=== PATIENT | male | born 1940 | race Caucasian/White ===

== ENCOUNTER 2016-06-16 12:34 | Inpatient (IN) | payer MEDICARE, BC ==
[~2016-06-16] VITALS: Ht 175.3 cm; Wt 65.8 kg
[~2016-06-16 12:34] MED LIST: LEVE250T2 PO; LISI10TA5 PO; SIMV5TAB2 PO; TAMS-12 PO
--- NOTE | 2016-06-16 12:40 | NUR ---
PT CAME HERE FOR S/P TRIP/FALL, POSSIBLE HIP FRACTURE. 4MG MORPHINE GIVEN ON THE FIELD. NOTED HYPOTENSIVE. DENIES KO. DENIES HEAD, NECK AND BACK PAIN. PT AOOX3. SEEN AND EVALUATED BY UROLOGY PHYSICIAN ASSISTANT. IV ACCESS TRUCK TRAILER FINAL INSPECTOR. SAFETY AND COMFORT MEASURES PROVIDED. WILL MONITOR.
[2016-06-16] MEDS ORDERED: IV SET PRIMARY PUMP SET 1 EA INFUS.SET MC ONE (12:58)
[2016-06-16] MEDS ORDERED: IV NS 0.9% 1,000 ML ONE (12:58)
[2016-06-16 13:00] LABS: BASOPHILS # (AUTO) 0.1 /CMM (0.0-0.2); BASOPHILS % (AUTO) 0.9 % (0.0-2.0); EOSINOPHILS # (AUTO) 0.1 /CMM (0.0-0.7); EOSINOPHILS % (AUTO) 1.8 % (0.0-6.0); HEMATOCRIT 36 % (39-51); HEMOGLOBIN 12.4 g/dL (13.5-17.5); LYMPHOCYTES # (AUTO) 2.1 /CMM (0.8-4.8); MEAN CORPUSCULAR HEMOGLOBIN 31 PG (26.0-33.0); MEAN CORPUSCULAR HGB CONC 35 g/dl (31.0-36.0); MEAN CORPUSCULAR VOLUME 88 fL (80-96); MONOCYTES # (AUTO) 0.5 /CMM (0.1-1.30); MONOCYTES % (AUTO) 9.5 % (2.0-12.0); NEUTROPHILS # (AUTO) 2.9 /CMM (1.8-8.9); NEUTROPHILS % (AUTO) 51.8 % (43.0-81.0); PLATELET COUNT (AUTO) 263 /CMM (150-450); RDW COEFFICIENT OF VARIATION 12.7 (11.5-15.0); RED BLOOD CELL COUNT(AUTO) 4.06 MIL/uL (4.5-6.0); WHITE BLOOD COUNT (AUTO) 5.7 K/uL (4.3-11.0)
[2016-06-16] MEDS ORDERED: MORPHINE SULFATE INJ 2 MG/ML DISP.SYRIN IV ONE (13:00)
[2016-06-16] MEDS ORDERED: ONDANSETRON HCL/PF - ER 4 MG/2 ML VIAL IV ONE (13:00)
[2016-06-16 13:12] LABS: CALCIUM, SERUM 8.9 mg/dL (8.5-10.1); POTASSIUM 3.6 mmol/L (3.5-5.1)
[2016-06-16 13:19] LABS: PROTHROMBIN TIME 10.4 SECS (9.5-12.7)
--- NOTE | 2016-06-16 13:30 | NUR ---
PT TAKEN TO XRAY.
[2016-06-16] MEDS ORDERED: MORPHINE SULFATE INJ 4 MG/ML DISP.SYRIN ONE (13:58)
[2016-06-16] MEDS ORDERED: ONDANSETRON HCL/PF 4 MG/2 ML VIAL ONE (13:58)
--- NOTE | 2016-06-16 14:06 | NUR ---
PAGED DR KURTIS ALVAREZ
[2016-06-16] MEDS ORDERED: SIMV40TA5 PO (14:48)
[2016-06-16] MEDS ORDERED: HYDR25TA4 PO (14:48)
[2016-06-16] MEDS ORDERED: FINA5TAB11 PO (14:48)
[2016-06-16] MEDS ORDERED: CHOL200026 PO (14:48)
[2016-06-16] MEDS ORDERED: ALEN70TA45 PO (14:48)
[2016-06-16] MEDS ORDERED: CYAN10009 PO (14:48)
--- NOTE | 2016-06-16 14:52 | NUR ---
REPORT GIVEN TO ALIYAH HOWELL FOR MED SURG ROOM 202
[2016-06-16 15:00] VITALS: BP 116/81
[2016-06-16] MEDS ORDERED: LEVE250T4 PO (15:00)
[2016-06-16 15:18] VITALS: BP 116/81
[2016-06-16] MEDS ORDERED: ZOLPIDEM TARTRATE 5 MG TABLET PO PRN (15:30)
[2016-06-16] MEDS ORDERED: MAG HYDROX/AL HYDROX/SIMETH 30 ML UDC PO PRN (15:30)
[2016-06-16] MEDS ORDERED: MAGNESIUM HYDROXIDE 30 ML UDC PO PRN (15:30)
[2016-06-16] MEDS ORDERED: ONDANSETRON HCL/PF 4 MG/2 ML VIAL IVP PRN (15:30)
[2016-06-16] MEDS ORDERED: ACETAMINOPHEN 325 MG TABLET PO PRN (15:30)
[2016-06-16] MEDS ORDERED: Z GUARD REMEDY 2 OZ OINT TP PRN ×2 (15:30→17:30)
--- NOTE | 2016-06-16 15:30 | NUR ---
MS LYNDA OPENING RECEIVED PATIENT FROM ER FOR C/O MECHANICAL FALL WITH RIGHT FEMUR FX. PATIENT DENIES KO, LOSS OF CONSCIOUSNESS. A/0X4 STATES SEVERE PAIN WITH MOVEMENT AND WOULD LIKE PAIN MEDICATIONS. PHARMACY CALLED TO VERIFY MD ORDERD. PATIENT DENIES SOB, DIFFICULTY BREATHING AT THIS TIME. VS BEING TAKEN BY FUR PULLER. PATIENT AWARE DR MOSELEY/LUPILLO WILL CONSULT WITH HIM FOR ORTHO. AND DR MACDONALD WILL CLEAR PATIENT FOR POTENTIAL SURGERY. PATIENT UNDERSTANDING ON NON WEIGHT BEARING STATUS AT THIS TIME; BEDREST. CALL LIGHT IN REACH, BED LOWERED AND LOCKED, RAILS UPX3 FOR SAFETY WITH BED ALARM ON.
[2016-06-16] MEDS: HYDROMORPHONE INJ 2 MG/ML DISP.SYRIN IV PRN ×2 (15:40→23:14)
[2016-06-16 16:00] VITALS: BP_SYST 116; BP_SYST 118; BP_DIAS 77; BP_DIAS 81
[2016-06-16] MEDS ORDERED: ENOXAPARIN SODIUM 40 MG/0.4 ML DISP.SYRIN SQ SCH (16:08)
--- NOTE | 2016-06-16 18:54 | NUR ---
MS RN CLOSING PT STABLE. PAIN CONTROLLED WITH PHARM AND NON PHARM MEASURES. ALL DUE MEDS GIVEN AND ALL NEEDS MET. PATIENT STATES NO NEEDS AT THIS TIME. CALL LIGHT IN REACH, BED LOWERED AND LOCKED, RAILS UPX3 FOR SAFETY AND CARE WILL BE ENDORSED TO RN FOR NAY
--- NOTE | 2016-06-16 19:30 | NUR ---
MSRN FULLY AWAKE, POST OP PAIN TOLERABLE ON HIS RIGHT HIP. DRESSING DRY AND INTACT. NORTH TO GRAVITY DRAINING WELL. ENCOURAGED TO USE INCENTIVE SPIROMETRY. STATED MIGHT GO TO REHAB PLACE ON TUESDAY. NO NEEDS FOR NOW. V/S STABLE REMAINS AFEBRILE.
--- NOTE | 2016-06-16 19:30 | NUR ---
RN NOTES RECEIVED PT. AWAKE ON BED, A/OX4, DENIES PAIN AT THIS TIME, NO SOB, CALL LIGHT WITHIN REACH, SIDERAILS UPX2 , CONTINUE TO MONITOR
[2016-06-16 20:00] VITALS: BP 128/70
--- NOTE | 2016-06-16 20:34 | NUR ---
RN NOTES COMPLAINED OF HAVING A HARD TIME URINATING,AND PT IS GOING TO HAVE SURGERY TOMORROW, SPOKE TO CORIE MENDEZ AND HE WILL PUT AN ORDER OF NORTH CATHETER.
--- NOTE | 2016-06-16 21:00 | NUR ---
RN NOTES FOLET CATHETER INSERTED EMPTIED 1200
[2016-06-16] MEDS: LEVETIRACETAM (250 MG) 250 MG TABLET PO SCH (21:27)
--- NOTE | 2016-06-16 23:28 | NUR ---
RN NOTES COMPLAINED OF RIGHT HIP PAIN-DILAUDID 1MG IV GIVEN ORDERED,V/S STABLE
[2016-06-17] VITALS (8 sets, daily range): BP systolic 114–134; BP diastolic 53–86
[2016-06-17] MEDS: HYDROMORPHONE INJ 2 MG/ML DISP.SYRIN IV PRN ×4 (05:30→22:55)
--- NOTE | 2016-06-17 05:36 | NUR ---
RN NOTES COMPLAINED OF RIGHT HIP PAIN- DILAUDID 1MG IV GIVEN ORDERED, V/S STABLE
--- NOTE | 2016-06-17 06:15 | NUR ---
RN NOTES AWAKE DENIES PAIN AT THIS TIME, MORNING CARE RENDERED, CALL LIGHT WITHIN REACH, SIDERAILS UPX2, PT. NEEDS ATTENDED
[2016-06-17 06:45] LABS: BASOPHILS % (AUTO) 0.3 % (0.0-2.0); EOSINOPHILS # (AUTO) 0.1 /CMM (0.0-0.7); EOSINOPHILS % (AUTO) 1.7 % (0.0-6.0); HEMATOCRIT 36 % (39-51); HEMOGLOBIN 12.4 g/dL (13.5-17.5); LYMPHOCYTES # (AUTO) 0.8 /CMM (0.8-4.8); LYMPHOCYTES % (AUTO) 9.8 % (20.0-44.0); MEAN CORPUSCULAR HEMOGLOBIN 31 PG (26.0-33.0); MEAN CORPUSCULAR HGB CONC 35 g/dl (31.0-36.0); MEAN CORPUSCULAR VOLUME 89 fL (80-96); MONOCYTES # (AUTO) 0.7 /CMM (0.1-1.30); MONOCYTES % (AUTO) 8.3 % (2.0-12.0); NEUTROPHILS # (AUTO) 6.3 /CMM (1.8-8.9); NEUTROPHILS % (AUTO) 79.9 % (43.0-81.0); PLATELET COUNT (AUTO) 219 /CMM (150-450); RDW COEFFICIENT OF VARIATION 13.3 (11.5-15.0); RED BLOOD CELL COUNT(AUTO) 4.04 MIL/uL (4.5-6.0); WHITE BLOOD COUNT (AUTO) 7.9 K/uL (4.3-11.0)
[2016-06-17 06:57] LABS: CALCIUM, SERUM 8.3 mg/dL (8.5-10.1); CREATININE 0.9 mg/dL (0.6-1.3); MAGNESIUM 1.8 mg/dL (1.8-2.4); PHOSPHORUS 2.2 mg/dL (2.5-4.9); POTASSIUM 3.9 mmol/L (3.5-5.1)
[2016-06-17 07:04] LABS: THYROID STIMULATING HORMONE 1.113 uIU/mL (0.358-3.74)
[2016-06-17] MEDS: PANTOPRAZOLE 40 MG TABLET.DR PO SCH (07:30)
--- NOTE | 2016-06-17 07:30 | NUR ---
MS/RN OPENING NOTE PT. A&OX4, IN BED, NOT IN DISTRESS AND IN STABLE CONDITION, NO SOB. PT. HAS NORTH. BED IN LOW POSITION, 2 BED RAILS UP, CALL LIGHT WITHIN REACH. PT. IS ON NPO BEFORE RIGHT HIP SURGERY. LEFT AC IV ACCESS INTACT.
[2016-06-17] MEDS: HYDROCHLOROTHIAZIDE 25 MG TABLET PO SCH (08:54)
[2016-06-17] MEDS: FINASTERIDE (5 MG) 5 MG TABLET PO SCH (08:54)
[2016-06-17] MEDS: LISINOPRIL (10MG) 10 MG TABLET PO SCH (08:54)
[2016-06-17] MEDS: LEVETIRACETAM (250 MG) 250 MG TABLET PO SCH ×2 (08:55→20:44)
[2016-06-17] MEDS ORDERED: SIMVASTATIN 40 MG TABLET PO SCH (09:00)
--- NOTE | 2016-06-17 10:00 | NUR ---
MS/RN MEDICATIONS/NASAL CANNULA PT. C/O PAIN 5/10 RIGHT HIP, DILAUDID GIVEN, AND APPLIED NASAL CANNULA 2L/MIN DUE TO SPO2 86%.
--- NOTE | 2016-06-17 11:00 | NUR ---
MS/RN REASSESSMENT PT. REPORTED PAIN LEVEL 3/10 AND PAIN RELIEF IN RIGHT HIP. SPO2 IS NOW AT 91%.
[2016-06-17] MEDS ORDERED: SEVOFLURANE 250 ML BOTTLE IH ONE (11:32)
--- NOTE | 2016-06-17 15:23 | NUR ---
MS/RN PT. LEFT ROOM PT. LEFT ROOM ALERT&OX4, IN STABLE CONDITION TO GO FOR SURGERY OF THE RIGHT HIP FRACTURE.
[2016-06-17] MEDS ORDERED: BUPIVACAINE 0.5 % PF 150 MG/30 ML VIAL ONE (15:47)
[2016-06-17] MEDS ORDERED: BACITRACIN 50000 UNITS/VIAL ONE (15:47)
[2016-06-17] MEDS ORDERED: BUPIVACAINE MPF 0.5% W/EPI INJ 30 ML VIAL ONE (15:47)
[2016-06-17] MEDS ORDERED: FENTANYL PF 250MCG/5ML AMPUL ONE (15:59)
[2016-06-17] MEDS ORDERED: SUCCINYLCHOLINE CHLORIDE 20 MG/ML VIAL ONE (15:59)
--- NOTE | 2016-06-17 18:20 | NUR ---
MS/RN RETURNED TO SAME ROOM POST OP PT. RETURNED TO ROOM FROM SURGERY. PT. VITAL SIGNS BP 128/64, HR 62, SPO2 92%. PT. IS NOT IN DISTRESS. PT. IS BREATHING UNLABORED AND EVENLY. PT. WAS ORDERED POST -OP TO RESUME PREVIOUS ORDERS. TAKE VITALS EVERY 15 MINUTES FOR AN HOUR. PT. WAS ORDERED BY ANESTHESIOLOGIST TO BE ON CONTINUOUS SPO2 FOR 24 HOURS. NEW MEDICATIONS WERE ORDERED.
[2016-06-17] MEDS ORDERED: IV NS 0.9% 1,000 ML BAG IV PRN (19:00)
--- NOTE | 2016-06-17 19:30 | NUR ---
MS NURSE'S OPENING NOTE RECEIVED REPORT FROM NIGHT NURSE. PATIENT IS RESTING IN BED, BED IN LOW AND LOCKED POSITION, SIDE RAILS UP X2, CALL LIGHT WITHIN REACH AND SO SIGNS OF DISTRESS.
--- NOTE | 2016-06-17 19:38 | NUR ---
MS/RN CLOSING NOTE PT. IS IN BED A&OX4, IN STABLE CONDITION WITH VITAL SIGNS WNL AFTER RIGHT HIP SURGERY. WEARING NASAL CANNULA WITH OXYGEN FLOWING 4.5L/MIN. ON CONTINUOUS SPO2 FOR 24 HOURS PER MD ORDER. PT. WAS GIVEN DILAUDID FOR PAIN, AND ZOFRAN. NO DRAINAGE FROM SURGICAL SITE. HAS NEW IV ACCESS SITE ON LEFT WRIST AND PATENT. ORDER GIVEN BY CINDY LOEV TO START IV FLUIDS NS 100ML/HR UNTIL TOLERATING ALL ORAL FLUIDS. LAST PAIN MEDICATION WAS GIVEN AT 1900 ALONG WITH ZOFRAN. WILL ENDORSE TO [facility].
[2016-06-17] MEDS ORDERED: Sodium Phosphate 15 MMOL in IV D5W 250 ML IV ONE (20:00)
[2016-06-17] MEDS ORDERED: IV SET PRIMARY PUMP SET 1 EA INFUS.SET MC ONE (20:47)
[2016-06-17] MEDS ORDERED: SECONDARY IV SET 1 EA INFUS.SET MC ONE ×2 (20:47→23:39)
[2016-06-17] MEDS ORDERED: IV NS 0.9% 1,000 ML ONE (20:47)
[2016-06-17] MEDS: IV NS 0.9% 1,000 ML IV PRN (20:53)
--- NOTE | 2016-06-17 22:59 | NUR ---
RN NOTES COMPLAINED OF RIGHT HIP PAIN- DILAUDID 1MG IV GIVEN ORDERED, V/S STABLE
[2016-06-18] MEDS ORDERED: SECONDARY IV SET 1 EA INFUS.SET MC ONE ×3 (00:02→12:46)
[2016-06-18] MEDS: CEFAZOLIN 2 GM in IV D5W 50 ML IV SCH ×3 (00:08→17:17)
[2016-06-18] MEDS: HYDROCODONE/APAP 5/325MG 1 EACH TABLET PO PRN ×2 (05:22→16:23)
--- NOTE | 2016-06-18 05:31 | NUR ---
MS NURSE'S NOTE PAIN MED PT COMPLAINED OF 4/10 PAIN AT RT HIP. ADMINISTERED NORCO 5/325 ORDERED. VS STABLE.
--- NOTE | 2016-06-18 06:50 | NUR ---
MS CLOSING NOTES PT IS RESTING IN BED, SIDE RAILS UP X2, BED IN LOCKED POSITION, CALL LIGHT WITHIN REACH. PT SHOWS NO SIGNS OF DISTRESS.
[2016-06-18 06:53] LABS: BASOPHILS % (AUTO) 0.1 % (0.0-2.0); HEMATOCRIT 32 % (39-51); HEMOGLOBIN 10.8 g/dL (13.5-17.5); LYMPHOCYTES # (AUTO) 0.8 /CMM (0.8-4.8); LYMPHOCYTES % (AUTO) 8.2 % (20.0-44.0); MEAN CORPUSCULAR HEMOGLOBIN 30 PG (26.0-33.0); MEAN CORPUSCULAR HGB CONC 34 g/dl (31.0-36.0); MEAN CORPUSCULAR VOLUME 89 fL (80-96); MONOCYTES % (AUTO) 9.9 % (2.0-12.0); NEUTROPHILS # (AUTO) 8.2 /CMM (1.8-8.9); NEUTROPHILS % (AUTO) 81.8 % (43.0-81.0); PLATELET COUNT (AUTO) 189 /CMM (150-450); RDW COEFFICIENT OF VARIATION 13.3 (11.5-15.0); RED BLOOD CELL COUNT(AUTO) 3.54 MIL/uL (4.5-6.0)
[2016-06-18 07:25] LABS: CALCIUM, SERUM 7.6 mg/dL (8.5-10.1); CREATININE 0.7 mg/dL (0.6-1.3); MAGNESIUM 1.7 mg/dL (1.8-2.4); PHOSPHORUS 2.7 mg/dL (2.5-4.9); POTASSIUM 3.6 mmol/L (3.5-5.1)
[2016-06-18 08:00] VITALS: BP 114/73
[2016-06-18] MEDS: LISINOPRIL (10MG) 10 MG TABLET PO SCH (08:09)
[2016-06-18] MEDS: PANTOPRAZOLE 40 MG TABLET.DR PO SCH (08:10)
[2016-06-18] MEDS: HYDROCHLOROTHIAZIDE 25 MG TABLET PO SCH (08:10)
[2016-06-18] MEDS: FINASTERIDE (5 MG) 5 MG TABLET PO SCH (08:10)
[2016-06-18] MEDS: LEVETIRACETAM (250 MG) 250 MG TABLET PO SCH ×2 (08:10→21:27)
--- NOTE | 2016-06-18 08:46 | NUR ---
MS/RN SURGEON CONSULT POST OP PT. WAS SEEN BY THE SURGEON TIERRA JAUREGUI. DISCUSSED WITH DOCTOR PT. DIET PT. WAS ORDERED HE CAN RESUME REGULAR DIET. PT. WAS ORDERED A CARDIAC DIET BREAKFAST.
[2016-06-18] MEDS: Magnesium 1GM/D5W 100ML PREMIX 100 ML IV SCH ×2 (12:54→13:45)
[2016-06-18] MEDS: IV NS 0.9% 1,000 ML IV PRN (12:56)
[2016-06-18] MEDS: HYDROCODONE/APAP 10/325MG 1 EA TABLET PO PRN (13:34)
[2016-06-18 16:00] VITALS: BP 125/52
[2016-06-18] MEDS: HYDROMORPHONE INJ 2 MG/ML DISP.SYRIN IV PRN ×3 (16:13→18:56)
--- NOTE | 2016-06-18 16:25 | NUR ---
DILAUDID COULD NOT BE ADMINISTERED VIA IV DUE TO PT. IV ACCESS SITE LEFT WRIST WAS INFILTRATED. PT. WAS INSTRUCTED TO KEEP LEFT ARM ELEVATED, PILLOWS WERE PROVIDED FOR SUPPORT.
--- NOTE | 2016-06-18 19:30 | NUR ---
MS NURSE OPENING NOTES RECEIVED REPORT FROM NIGHT NURSE. PT RESTING IN BED, SIDE RAILS UP X2, CALL LIGHT WITHIN REACH, AND NO SIGNS OF DISTRESS.
--- NOTE | 2016-06-18 19:30 | NUR ---
MS NURSES OPENING NOTES RECEIVED REPORT FROM NIGHT NURSE. PT WAS IN BED, HOB AT 45 DEGREES, CALL LIGHT WITHIN REACH, NO SIGNS OF DISTRESS.
--- NOTE | 2016-06-18 19:30 | NUR ---
MSRN FULLY AWAKE, ALL NEEDS MADE. ABLE TO TOLERATE RIGHT HIP POST OP PAIN. DRESSING DRY AND INTACT. WANTED TO GO HOME. STATED WILL GO BY TUESDAY TO REHAB FOR SHORT PERIODS . ENCOURAGE TO USE INCENTIVE SPIROMETRY.
--- NOTE | 2016-06-18 19:34 | NUR ---
MS/RN CLOSING NOTE PT. IS IN BED, IN STABLE CONDITION. NOT IN DISTRESS, AND NO SOB, BREATHING AT ROOM AIR. A&OX4, PAIN LEVEL AT A 3/10. PT. HAS A NEW IV ACCESS ON HIS RIGHT FOREARM WITH FLUIDS INFUSING AT 5ML/HR. BED IS IN LOW POSITION, CALL LIGHT WITHIN REACH. WILL ENDORSE REPORT TO NIGHT NURSE.
[2016-06-18 20:00] VITALS: BP 100/46
[2016-06-18] MEDS: SIMVASTATIN 40 MG TABLET PO SCH (21:27)
[2016-06-18] MEDS: ENOXAPARIN SODIUM 40 MG/0.4 ML DISP.SYRIN SQ SCH (21:33)
--- NOTE | 2016-06-18 22:25 | NUR ---
MSRN RESTING QUIETLY, NORTH TO GRAVITY DRAINING WELL. NO NEEDS FOR NOW, V/S STABLE
[2016-06-18 22:31] VITALS: BP 100/46
--- NOTE | 2016-06-19 05:54 | NUR ---
MSRN AWAKE, STATED WANT TO GET OOB. BUT CHANGED HIS MIND. DENIES ANT DISCOMFORTS FOR NOW.
--- NOTE | 2016-06-19 07:10 | NUR ---
RN INITIAL NOTES RECEIVED PT IN BED, A/O X 4, ABLE TO MAKE NEEDS KNOWN, PT IS ON RA, SATING WELL, NO S/S OF RESP. DISTRESS OR SOB NOTED AT THIS TIME,PT HAS RIGHT HIP SURGICAL DRESSING INTACT, DRY AND CLEAN, PT HAS R WRIST # 22G, C/D/I/PATENT, FLUSHING WELL, RUNNING NS @ 100ML/HR, NO S/S OF INFECTION/ INFILTRATION NOTED AT THIS TIME, PT HAS F/C INTACT/PATENT, DRAINING YELLOW URINE TO GRAVITY, ALL SAFETY MEASURES IN PLACE AT ALL TIMES, CALL LIGHT WITHIN EASY REACH, WILL MONITOR PT CLOSELY
[2016-06-19 07:34] LABS: CALCIUM, SERUM 7.5 mg/dL (8.5-10.1); CREATININE 0.7 mg/dL (0.6-1.3); MAGNESIUM 1.9 mg/dL (1.8-2.4); POTASSIUM 3.5 mmol/L (3.5-5.1)
--- NOTE | 2016-06-19 07:47 | NUR ---
MS NURSE CLOSING NOTES GAVE REPORT TO MORNING NURSE. PT RESTING IN BED, SIDE RAILS UP X2, CALL LIGHT WITHIN REACH, AND NO SIGNS OF DISTRESS.
[2016-06-19 08:00] VITALS: BP 127/61
[2016-06-19] MEDS: IV NS 0.9% 1,000 ML IV PRN ×2 (08:08→17:42)
[2016-06-19] MEDS: FINASTERIDE (5 MG) 5 MG TABLET PO SCH (08:09)
[2016-06-19] MEDS: LISINOPRIL (10MG) 10 MG TABLET PO SCH (08:09)
[2016-06-19] MEDS: LEVETIRACETAM (250 MG) 250 MG TABLET PO SCH ×2 (08:09→20:50)
[2016-06-19] MEDS: PANTOPRAZOLE 40 MG TABLET.DR PO SCH (08:09)
[2016-06-19] MEDS: HYDROCHLOROTHIAZIDE 25 MG TABLET PO SCH (08:10)
[2016-06-19] MEDS: HYDROCODONE/APAP 10/325MG 1 EA TABLET PO PRN (13:44)
[2016-06-19] MEDS: HYDROMORPHONE INJ 2 MG/ML DISP.SYRIN IV PRN ×2 (13:45→20:59)
--- NOTE | 2016-06-19 13:52 | NUR ---
RN NOTES NON ADMINISTERED PINK MEDICATIONS FOR PT SAFETY
[2016-06-19 16:00] VITALS: BP 119/56
--- NOTE | 2016-06-19 17:40 | NUR ---
RN NOTES F/C REMOVED, PT TOLERATE WELL, PT ABLE TO URINATE
--- NOTE | 2016-06-19 18:44 | NUR ---
RN CLOSING NOTES PT REMAINED STABLE DURING SHIFT, ALL ORDERS CARRIED OUT, IV INTACT/PATENT, RUNNING FLUIDS ORDERED, PT KEPT CLEAN AND DRY, ALL SAFETY MEASURES IN PLACE AT ALL TIMES, REPORT WILL BE GIVEN TO PM RN FOR NAY
[2016-06-19 19:00] VITALS: BP_SYST 103; BP_SYST 123; BP_DIAS 53; BP_DIAS 73
[2016-06-19 20:00] VITALS: BP 123/53
--- NOTE | 2016-06-19 20:00 | NUR ---
RECEIVED PATIENT IN BED, ALERT AND ORIENTED X4, CALM, NO SOB, NO RESPIRATORY DISTRESS, S/P RIGHT HIP ORIF 06/17/16, LUNG SOUNDS ARE CLEAR, ABDOMEN SOFT AND NON-TENDER, NO N/V, PAIN IS TOLERABLE AT THIS TIME, WILL ASK FOR PAIN MEDICATION WHEN NEEDED, RIGHT WRIST PERIPHERAL LINE IS PATENT AND INFUSING WELL, RIGHT HIP DRESSING IS CLEAN, PATENT, NO BLEEDING, ABLE TO USE TRAPEZE, S/P NORTH CATHETER REMOVAL, ABLE TO VOID IN URINAL OF CLEAR AND YELLOW URINE. KEPT SAFE AND COMFORTABLE, CALL LIGHT WITHIN REACH.
[2016-06-19] MEDS: ENOXAPARIN SODIUM 40 MG/0.4 ML DISP.SYRIN SQ SCH (20:53)
[2016-06-19] MEDS: SIMVASTATIN 40 MG TABLET PO SCH (21:07)
[2016-06-19 22:00] VITALS: BP 123/53
[2016-06-20] MEDS: IV NS 0.9% 1,000 ML IV PRN ×2 (03:33→13:47)
--- NOTE | 2016-06-20 06:30 | NUR ---
PATIENT IN BED, ALERT AND AWAKE, NO SOB, NO DISTRESS, PAIN TO RIGHT HIP IS 4/10, WILL ASK FOR PAIN MEDICATION WHEN NEEDED, NO DIFFICULTY VOIDING VIA URINAL, ALL DUE MEDICATIONS GIVEN, KEPT SAFE AND COMFORTABLE, CALL LIGHT WITHIN REACH.
--- NOTE | 2016-06-20 07:10 | NUR ---
MS RN NOTES RECEIVED PATIENT IN BED, AWAKE, A/O X3. BREATHING EVEN AND NON LABORED, NO SOB NOTED. IV IN LEFT WRIST G22 PATENT AND INTACT, FLUSHES WELL. RIGHT HIP INCISION WITH REJI INTACT, DRESSING IN PLACE. NO C/O PAIN AT THIS TIME. CALL LIGHT WITHIN REACH. WILL CONT TO MONITOR.
[2016-06-20 07:12] LABS: CALCIUM, SERUM 7.4 mg/dL (8.5-10.1); CREATININE 0.6 mg/dL (0.6-1.3); POTASSIUM 3.4 mmol/L (3.5-5.1)
[2016-06-20 08:00] VITALS: BP 131/66
[2016-06-20] MEDS: FINASTERIDE (5 MG) 5 MG TABLET PO SCH (08:47)
[2016-06-20] MEDS: LEVETIRACETAM (250 MG) 250 MG TABLET PO SCH (08:47)
[2016-06-20] MEDS: HYDROCHLOROTHIAZIDE 25 MG TABLET PO SCH (08:48)
[2016-06-20] MEDS: LISINOPRIL (10MG) 10 MG TABLET PO SCH (08:48)
[2016-06-20] MEDS: PANTOPRAZOLE 40 MG TABLET.DR PO SCH (08:48)
[2016-06-20] MEDS: HYDROCODONE/APAP 5/325MG 1 EACH TABLET PO PRN (08:53)
[2016-06-20] MEDS ORDERED: ENOX40DI SQ (11:24)
[2016-06-20] MEDS ORDERED: HYDR-3326 PO (11:24)
[2016-06-20] MEDS ORDERED: HYDR-3658 PO (11:24)
[2016-06-20] MEDS ORDERED: SENN-22 PO (11:24)
[2016-06-20] MEDS ORDERED: POTASSIUM CHLORIDE 20 MEQ TAB.PRT.SR PO SCH (11:30)
--- NOTE | 2016-06-20 11:31 | NUR ---
PATIENT TO BE DISCHARGED TO REHAB FACILITY, CM INFORMED.
[2016-06-20 16:00] VITALS: BP_SYST 141
[2016-06-20] MEDS: HYDROCODONE/APAP 10/325MG 1 EA TABLET PO PRN (19:05)
--- NOTE | 2016-06-20 19:15 | NUR ---
MS RN CLOSING NOTES PATIENT IN BED, A/O X3. NOT IN DISTRESS. PATIENT HAS BEEN CLEARED FOR DISCHARGE TO [facility] TODAY. DISCHARGE INSTRUCTION GIVEN TO THE PATIENT, VERBALIZED UNDERSTANDING. CALL LIGHT WITHIN REACH. CALLED [facility] SPOKE TO HOLLEY-LYNDA FOR REPORT. ENDORSED TO PACKING ROOM WORKER RN FOR CONTINUITY OF CARE.
--- NOTE | 2016-06-20 19:30 | NUR ---
MS RN INITIAL NOTE RECEIVED PT AWAKE AND ALERT, RESPIRATIONS EVEN AND UNLABORED, NORCO 10/325MG GIVEN FOR PAIN WILL BE REASSESSING FOR EFFECTIVENESS, PT IS SCHEDULED TO BE TRANSFERRED TO [facility], CURRENTLY AWAITING FOR AMBULANCE TO ARRIVE, PT IS CLEAN/DRY AND COMFORTABLE, SAFETY MEASURES WILL BE MAINTAINED AT ALL TIMES, WILL MONITOR CLOSELY.
[2016-06-20 20:00] VITALS: BP 139/65
--- NOTE | 2016-06-20 20:05 | NUR ---
PT HAS BEEN PICKED UP BY EMT TO TRANSPORT PT TO [facility], PT IS STABLE AT TIME OF DISCHARGE, IV ACCESS HAS BEEN D/C'D, NORCO 10/325MG GIVEN AN HOUR BEFORE D/C, NO COMPLAINT OF PAIN OR RESPIRATORY DISTRESS NOTED AT THIS TIME, REPORT GIVEN TO EMT, MD AND CHARGE NURSE AWARE OF DISCHARGE.
[2016-06-21] MEDS ORDERED: ALENDRONATE 70 MG TABLET PO SCH (07:30)
== END 2016-06-20 20:15 | DRG 481 ==
LOC: ER 12:37 → MEDSG2 14:43
PROC: 0QS604Z Reposition Right Upper Femur with Internal Fixation Device, Open Approach (ICD-10-PCS; principal; 2016-06-17 16:00)
DX: S72.091A Other fracture of head and neck of right femur, initial encounter for closed fracture (principal); G40.209 Localization-related (focal) (partial) symptomatic epilepsy and epileptic syndromes with complex partial seizures, not intractable, without status epilepticus; E87.1 Hypo-osmolality and hyponatremia; W10.9XXA Fall (on) (from) unspecified stairs and steps, initial encounter; N40.0 Benign prostatic hyperplasia without lower urinary tract symptoms; I10 Essential (primary) hypertension; G31.84 Mild cognitive impairment of uncertain or unknown etiology; F17.210 Nicotine dependence, cigarettes, uncomplicated; E78.5 Hyperlipidemia, unspecified; I35.0 Nonrheumatic aortic (valve) stenosis; Z79.899 Other long term (current) drug therapy; Z80.41 Family history of malignant neoplasm of ovary; Z87.442 Personal history of urinary calculi; X58.XXXA Exposure to other specified factors, initial encounter; Y92.009 Unspecified place in unspecified non-institutional (private) residence as the place of occurrence of the external cause; Y99.9 Unspecified external cause status; D64.9 Anemia, unspecified; M62.84 Sarcopenia; Z79.83 Long term (current) use of bisphosphonates
CPT/HCPCS: 36415; 71010-TC; 73510-TC; 73550-TC; 80048-TC; 80061-TC; 82306; 83735-TC; 84100-TC; 84443-TC; 85025-TC; 85730-TC; 86850-TC; 87081-TC; 88305-TC; 88311-TC; 93307-TC; 97001-TC; 97110-TC; 97112-TC; 97530-TC; A4606; A6209; A6402; A9563; J0330; J0690; J1100; J1170; J1650; J2270; J2405; J2704; J2710; J3010; J3475; J3490; J7030; J7060; Z7610

== ENCOUNTER 2020-03-06 13:15 | Outpatient (CLI) | payer MEDICARE, BC ==
[~2020-03-06 13:15] MED LIST changes: +ALEN70TA69 PO; +CHOL200026 PO; +CYAN-51 PO; +ENOX40DI SQ; +FINA5TAB11 PO; +HYDR-3974 PO; +HYDR-3980 PO; +HYDR25TA4 PO; -LEVE250T2 PO; +LEVE250T4 PO; +SENN1TAB6 PO; +SIMV-49 PO; -SIMV5TAB2 PO; -TAMS-12 PO
[2020-03-06] MEDS ORDERED: LIDOCAINE 2% JEL 5 ML TUBE ONE (13:23)
[2020-03-06 14:35] LABS: BASOPHILS # (AUTO) 0.1 /CMM (0.0-0.2); BASOPHILS % (AUTO) 1.2 % (0.0-2.0); EOSINOPHILS % (AUTO) 1.5 % (0.0-6.0); HEMATOCRIT 38 % (39-51); HEMOGLOBIN 12.9 g/dL (13.5-17.5); LYMPHOCYTES # (AUTO) 1.8 /CMM (0.8-4.8); LYMPHOCYTES % (AUTO) 30.3 % (20.0-44.0); MEAN CORPUSCULAR HGB CONC 34 g/dl (31.0-36.0); MEAN CORPUSCULAR VOLUME 89 fL (80-96); MONOCYTES # (AUTO) 0.6 /CMM (0.1-1.30); MONOCYTES % (AUTO) 10.3 % (2.0-12.0); NEUTROPHILS # (AUTO) 3.3 /CMM (1.8-8.9); NEUTROPHILS % (AUTO) 56.7 % (43.0-81.0); PLATELET COUNT (AUTO) 250 /CMM (150-450); RED BLOOD CELL COUNT(AUTO) 4.27 MIL/uL (4.5-6.0); WHITE BLOOD COUNT (AUTO) 5.8 K/uL (4.3-11.0)
[2020-03-06 14:46] LABS: CALCIUM, SERUM 9.2 mg/dL (8.5-10.1); CREATININE 0.8 mg/dL (0.6-1.3); POTASSIUM 3.7 mmol/L (3.5-5.1)
== END 2020-03-06 23:59 | disposition home or self-care (01) ==
LOC: WOU 13:15
PROVIDERS: ATTEND Surgery
DX: C44.719 Basal cell carcinoma of skin of left lower limb, including hip (principal); E78.5 Hyperlipidemia, unspecified; I10 Essential (primary) hypertension; N40.0 Benign prostatic hyperplasia without lower urinary tract symptoms
CPT/HCPCS: 36415; 71250; 74176; 80048; 85025; 85730; 93005; G0463

== ENCOUNTER 2020-03-17 09:45 | Outpatient (CLI) | payer MEDICARE, BC | END 2020-03-17 23:59 | disposition home or self-care (01) | LOC: LAB 09:45 | PROVIDERS: ATTEND Surgery | DX: Z01.812 Encounter for preprocedural laboratory examination (principal); Z20.822 Contact with and (suspected) exposure to COVID-19 | CPT/HCPCS: C9803; U0003 ==

== ENCOUNTER 2020-03-27 13:20 | Outpatient (CLI) | payer MEDICARE, BC ==
[~2020-03-27 13:20] MED LIST changes: -ALEN70TA69 PO; +ALEN70TA80 PO; +LISI10TA29 PO; -LISI10TA5 PO
== END 2020-03-27 23:59 | disposition home or self-care (01) ==
LOC: WOU 13:20
PROVIDERS: ATTEND Surgery
DX: Z48.817 Encounter for surgical aftercare following surgery on the skin and subcutaneous tissue (principal); C44.719 Basal cell carcinoma of skin of left lower limb, including hip; R26.2 Difficulty in walking, not elsewhere classified; I10 Essential (primary) hypertension; E78.5 Hyperlipidemia, unspecified; N40.0 Benign prostatic hyperplasia without lower urinary tract symptoms; F17.210 Nicotine dependence, cigarettes, uncomplicated
CPT/HCPCS: G0463

== ENCOUNTER 2020-04-03 13:50 | Outpatient (CLI) | payer MEDICARE, BC | END 2020-04-03 23:59 | disposition home health service (06) | LOC: WOU 13:50 | PROVIDERS: ATTEND Surgery | DX: T81.31XA Disruption of external operation (surgical) wound, not elsewhere classified, initial encounter (principal); T86.821 Skin graft (allograft) (autograft) failure; I10 Essential (primary) hypertension; E78.5 Hyperlipidemia, unspecified; N40.0 Benign prostatic hyperplasia without lower urinary tract symptoms | CPT/HCPCS: 11043 ==

== ENCOUNTER 2020-04-04 13:35 | Outpatient (CLI) | payer MEDICARE, BC | END 2020-04-04 23:59 | disposition home or self-care (01) | LOC: WOU 13:35 | PROVIDERS: ATTEND Specialist | DX: T86.828 Other complications of skin graft (allograft) (autograft) (principal); I10 Essential (primary) hypertension; E78.5 Hyperlipidemia, unspecified; Z87.891 Personal history of nicotine dependence; Z85.828 Personal history of other malignant neoplasm of skin | CPT/HCPCS: G0463 ==

== ENCOUNTER 2020-04-09 11:05 | Outpatient (CLI) | payer MEDICARE, BC | END 2020-04-09 23:59 | disposition home health service (06) | LOC: WOU 11:05 | PROVIDERS: ATTEND Specialist | DX: T86.828 Other complications of skin graft (allograft) (autograft) (principal); R22.9 Localized swelling, mass and lump, unspecified; I10 Essential (primary) hypertension; E78.5 Hyperlipidemia, unspecified; Z85.828 Personal history of other malignant neoplasm of skin | CPT/HCPCS: G0463 ==

== ENCOUNTER 2020-04-17 13:45 | Outpatient (CLI) | payer MEDICARE, BC ==
[~2020-04-17 13:45] MED LIST changes: +LIDOCAINE SOLN 4% 50 ML BOTTLE ONE
== END 2020-04-17 23:59 | disposition home health service (06) ==
LOC: WOU 13:45
PROVIDERS: ATTEND Surgery
DX: T86.828 Other complications of skin graft (allograft) (autograft) (principal); T81.31XA Disruption of external operation (surgical) wound, not elsewhere classified, initial encounter; I10 Essential (primary) hypertension; E78.5 Hyperlipidemia, unspecified; N40.0 Benign prostatic hyperplasia without lower urinary tract symptoms; Z85.828 Personal history of other malignant neoplasm of skin
CPT/HCPCS: 11042

== ENCOUNTER 2020-04-23 12:43 | Outpatient (CLI) | payer MEDICARE, BC ==
[~2020-04-23 12:43] MED LIST changes: -LIDOCAINE SOLN 4% 50 ML BOTTLE ONE
== END 2020-04-23 23:59 | disposition home health service (06) ==
LOC: WOU 12:43
PROVIDERS: ATTEND Specialist
DX: T86.828 Other complications of skin graft (allograft) (autograft) (principal); T81.31XD Disruption of external operation (surgical) wound, not elsewhere classified, subsequent encounter; I10 Essential (primary) hypertension; E78.5 Hyperlipidemia, unspecified; M79.604 Pain in right leg; M54.9 Dorsalgia, unspecified; Z87.891 Personal history of nicotine dependence
CPT/HCPCS: G0463

== ENCOUNTER 2020-04-24 14:00 | Outpatient (CLI) | payer MEDICARE, BC | END 2020-04-24 23:59 | disposition home or self-care (01) | LOC: WOU 14:00 | PROVIDERS: ATTEND Surgery | DX: T86.828 Other complications of skin graft (allograft) (autograft) (principal); I10 Essential (primary) hypertension; E78.5 Hyperlipidemia, unspecified; N40.0 Benign prostatic hyperplasia without lower urinary tract symptoms; Z85.828 Personal history of other malignant neoplasm of skin; Z87.891 Personal history of nicotine dependence | CPT/HCPCS: G0463 ==

== ENCOUNTER 2020-04-29 14:13 | Emergency (ER) | payer MEDICARE, BC ==
[~2020-04-29] VITALS: Ht 167.6 cm; Wt 73.5 kg
--- NOTE | 2020-04-29 14:25 | NUR ---
CAME IN FOR RIGHT LEG MUSCLE SPASM AND DIFFICULTY WALKING SINCE TUESDAY NIGHT AFTER A MASSAGE, PATIENT STATES "IT'S PAIN IN MY R GROIN WHENEVER I STEP MY R LEG". TO ER BED 9, HOOKED TO MONITOR, CHANGED TO HOSP GOWN, WARM BLANKET PROVIDED, PATIENT AAO x 4. NAD NOTED. AWAITING MD NEGRO
[2020-04-29 15:24] VITALS: BP 146/73
== END 2020-04-29 15:25 | disposition home or self-care (01) ==
LOC: ER 14:14
DX: M79.604 Pain in right leg (principal); G40.909 Epilepsy, unspecified, not intractable, without status epilepticus; I10 Essential (primary) hypertension; I25.10 Atherosclerotic heart disease of native coronary artery without angina pectoris; F17.200 Nicotine dependence, unspecified, uncomplicated; Z90.89 Acquired absence of other organs; Z98.890 Other specified postprocedural states; Z79.899 Other long term (current) drug therapy

== ENCOUNTER 2020-05-22 13:35 | Outpatient (CLI) | payer MEDICARE, BC ==
[2020-05-22] MEDS ORDERED: BACI/NEOM/POLY B OINT PKT 1 UDPKT PACKET ONE (14:09)
== END 2020-05-22 23:59 | disposition home or self-care (01) ==
LOC: WOU 13:35
PROVIDERS: ATTEND Surgery
DX: R22.9 Localized swelling, mass and lump, unspecified (principal); R23.8 Other skin changes; I10 Essential (primary) hypertension; E78.5 Hyperlipidemia, unspecified; N40.0 Benign prostatic hyperplasia without lower urinary tract symptoms; Z85.828 Personal history of other malignant neoplasm of skin
CPT/HCPCS: G0463

== ENCOUNTER 2020-07-03 13:50 | Outpatient (CLI) | payer MEDICARE, BC | END 2020-07-03 23:59 | disposition home or self-care (01) | LOC: WOU 13:50 | PROVIDERS: ATTEND Surgery | DX: R22.9 Localized swelling, mass and lump, unspecified (principal); Z85.828 Personal history of other malignant neoplasm of skin; I10 Essential (primary) hypertension; E78.5 Hyperlipidemia, unspecified; N40.0 Benign prostatic hyperplasia without lower urinary tract symptoms | CPT/HCPCS: G0463 ==

== ENCOUNTER → 2020-10-02 | Outpatient (CLI) | payer MEDICARE, BC | END | disposition home or self-care (01) | LOC: WOU 12:40 | PROVIDERS: ATTEND Surgery | DX: L98.9 Disorder of the skin and subcutaneous tissue, unspecified (principal); Z85.828 Personal history of other malignant neoplasm of skin; E78.5 Hyperlipidemia, unspecified; I10 Essential (primary) hypertension; N40.0 Benign prostatic hyperplasia without lower urinary tract symptoms; Z87.891 Personal history of nicotine dependence; Z79.899 Other long term (current) drug therapy; Z86.69 Personal history of other diseases of the nervous system and sense organs | CPT/HCPCS: G0463 ==

== ENCOUNTER 2021-01-08 12:35 | Outpatient (CLI) | payer MEDICARE, BC | END 2021-01-08 23:59 | disposition home or self-care (01) | LOC: WOU 12:35 | PROVIDERS: ATTEND Surgery | DX: L98.8 Other specified disorders of the skin and subcutaneous tissue (principal); I10 Essential (primary) hypertension; E78.5 Hyperlipidemia, unspecified; Z85.828 Personal history of other malignant neoplasm of skin | CPT/HCPCS: G0463 ==

== ENCOUNTER 2021-07-09 12:25 | Outpatient (CLI) | payer MEDICARE, BC | END 2021-07-09 23:59 | disposition home or self-care (01) | LOC: WOU 12:25 | PROVIDERS: ATTEND Surgery | DX: L98.8 Other specified disorders of the skin and subcutaneous tissue (principal); I10 Essential (primary) hypertension; E78.5 Hyperlipidemia, unspecified; N40.0 Benign prostatic hyperplasia without lower urinary tract symptoms; Z85.828 Personal history of other malignant neoplasm of skin | CPT/HCPCS: G0463 ==

== ENCOUNTER 2022-01-07 12:25 | Outpatient (CLI) | payer MEDICARE, BC | END 2022-01-07 23:59 | disposition home or self-care (01) | LOC: WOU 12:25 | PROVIDERS: ATTEND Surgery | DX: Z08 Encounter for follow-up examination after completed treatment for malignant neoplasm (principal); Z85.828 Personal history of other malignant neoplasm of skin; E78.5 Hyperlipidemia, unspecified; I10 Essential (primary) hypertension; N40.0 Benign prostatic hyperplasia without lower urinary tract symptoms | CPT/HCPCS: G0463 ==

== ENCOUNTER 2022-07-08 12:49 | Outpatient (CLI) | payer MEDICARE, BC | END 2022-07-08 23:59 | disposition home or self-care (01) | LOC: WOU 12:49 | PROVIDERS: ATTEND Surgery | DX: Z08 Encounter for follow-up examination after completed treatment for malignant neoplasm (principal); Z85.828 Personal history of other malignant neoplasm of skin; I10 Essential (primary) hypertension; E78.5 Hyperlipidemia, unspecified; N40.0 Benign prostatic hyperplasia without lower urinary tract symptoms | CPT/HCPCS: G0463 ==

== ENCOUNTER 2023-04-03 07:22 | Inpatient (IN) | payer MEDICARE, BC ==
[~2023-04-03] VITALS: Ht 167.6 cm; Wt 74.4 kg
[2023-04-03] MEDS: PANTOPRAZOLE 80 MG in IV NS 0.9% 100 ML IV ONE (08:55)
[2023-04-03 09:02] LABS: BASOPHILS # (AUTO) 0.1 K/uL (0.0-0.2); BASOPHILS % (AUTO) 1.1 % (0.0-2.0); EOSINOPHILS # (AUTO) 0.2 K/uL (0.0-0.7); EOSINOPHILS % (AUTO) 2.8 % (0.0-6.0); HEMATOCRIT 33 % (39-51); LYMPHOCYTES % (AUTO) 15.4 % (20.0-44.0); MEAN CORPUSCULAR HEMOGLOBIN 26 PG (26.0-33.0); MEAN CORPUSCULAR HGB CONC 33 g/dl (31.0-36.0); MEAN CORPUSCULAR VOLUME 79 fL (80-96); MONOCYTES # (AUTO) 0.6 K/uL (0.1-1.30); MONOCYTES % (AUTO) 9.1 % (2.0-12.0); NEUTROPHILS # (AUTO) 4.9 K/uL (1.8-8.9); NEUTROPHILS % (AUTO) 71.6 % (43.0-81.0); PLATELET COUNT (AUTO) 326 K/uL (150-450); RED BLOOD CELL COUNT(AUTO) 4.17 MIL/uL (4.5-6.0); RED CELL DISTRIBUTION WIDTH 14.3 % (11.5-15.0); WHITE BLOOD COUNT (AUTO) 6.8 K/uL (4.3-11.0)
[2023-04-03] MEDS ORDERED: TAMS-12 PO (09:02)
[2023-04-03] MEDS ORDERED: CHOL100043 PO (09:02)
[2023-04-03] MEDS ORDERED: PANT40TA49 PO (09:02)
[2023-04-03] MEDS ORDERED: POTA15TA PO (09:04)
[2023-04-03] MEDS: PANTOPRAZOLE 80 MG in IV NS 0.9% 500 ML IV ONE (09:19)
[2023-04-03 09:26] LABS: ALANINE AMINOTRANSFERASE 15 U/L (12-78); ALBUMIN 3.5 g/dL (3.4-5.0); ALKALINE PHOSPHATASE 107 U/L (46-116); ASPARTATE AMINOTRANSFERASE 22 U/L (15-37); BILIRUBIN,DIRECT 0.1 mg/dL (0.0-0.2); BILIRUBIN,TOTAL 0.5 mg/dL (0.2-1.0); CALCIUM, SERUM 9.1 mg/dL (8.5-10.1); CARBON DIOXIDE 29 mmol/L (21-32); CHLORIDE 97 mmol/L (98-107); CREATININE 0.8 mg/dL (0.6-1.3); GLUCOSE 101 mg/dL (74-106); LIPASE 23 U/L (16-77); NT-PRO BNP 264 pg/mL (0-125); POTASSIUM 4.2 mmol/L (3.5-5.1); SODIUM SERUM 132 mmol/L (136-145); TOTAL PROTEIN, SERUM 7.4 g/dL (6.4-8.2); UREA NITROGEN, BLOOD 19 mg/dL (7-18)
[2023-04-03] MEDS ORDERED: Z GUARD REMEDY 4 OZ OINT TP PRN (09:30)
[2023-04-03] MEDS ORDERED: MAGNESIUM HYDROXIDE 30 ML UDC PO PRN (09:30)
[2023-04-03] MEDS ORDERED: ONDANSETRON HCL/PF 4 MG/2 ML VIAL IVP PRN (09:30)
[2023-04-03] MEDS ORDERED: MAG HYDROX/AL HYDROX/SIMETH 30 ML UDC PO PRN (09:30)
[2023-04-03 09:37] LABS: INR 1.03 (0.91-1.10); PARTIAL THROMBOPLASTIN TIME 28.8 SEC (24.3-34.3); PROTHROMBIN TIME 10.9 SECS (9.2-11.1)
[2023-04-03 11:39] VITALS: O2SAT 97
[2023-04-03 12:22] LABS: APPEARANCE,URINE CLEAR (CLEAR); BILIRUBIN,URINE NEGATIVE (NEGATIVE); BLOOD, URINE NEGATIVE Ery/uL (NEGATIVE); COLOR,URINE YELLOW (YELLOW); KETONES,URINE NEGATIVE (NEGATIVE); LEUKOCYTE ESTERASE ,URINE NEGATIVE (NEGATIVE); NITRITE, URINE NEGATIVE (NEGATIVE); PH,URINE 6.5 (5.0-8.0); PROTEIN,URINE NEGATIVE (NEGATIVE); UGLUCOSE NEGATIVE (NEGATIVE)
[2023-04-03 16:00] VITALS: BP 131/80; TEMP 97.9; O2SAT 95
[2023-04-03] MEDS: IV NS 0.9% 1,000 ML IV PRN (18:06)
[2023-04-03] MEDS: PANTOPRAZOLE 40 MG VIAL IV SCH (20:10)
[2023-04-03] MEDS: LEVETIRACETAM (250 MG) 250 MG TABLET PO SCH (20:11)
[2023-04-03 21:08] VITALS: BP 153/54; TEMP 98.6
[2023-04-03] MEDS ORDERED: LEVETIRACETAM (500MG) 500 MG/5 ML VIAL IV ONE (21:30)
[2023-04-03] MEDS: LEVETIRACETAM (500MG) 750 MG in IV NS 0.9% 100 ML IV SCH (21:40)
[2023-04-04 00:54] VITALS: BP 131/53; TEMP 97.9; O2SAT 98
[2023-04-04 07:15] LABS: BASOPHILS # (AUTO) 0.1 K/uL (0.0-0.2); BASOPHILS % (AUTO) 1.8 % (0.0-2.0); EOSINOPHILS # (AUTO) 0.2 K/uL (0.0-0.7); HEMATOCRIT 28 % (39-51); HEMOGLOBIN 9.6 g/dL (13.5-17.5); LYMPHOCYTES % (AUTO) 18.5 % (20.0-44.0); MEAN CORPUSCULAR HEMOGLOBIN 27 PG (26.0-33.0); MEAN CORPUSCULAR HGB CONC 35 g/dl (31.0-36.0); MEAN CORPUSCULAR VOLUME 78 fL (80-96); MONOCYTES # (AUTO) 0.6 K/uL (0.1-1.30); MONOCYTES % (AUTO) 11.2 % (2.0-12.0); NEUTROPHILS # (AUTO) 3.4 K/uL (1.8-8.9); NEUTROPHILS % (AUTO) 64.5 % (43.0-81.0); PLATELET COUNT (AUTO) 276 K/uL (150-450); RED BLOOD CELL COUNT(AUTO) 3.56 MIL/uL (4.5-6.0); RED CELL DISTRIBUTION WIDTH 14.2 % (11.5-15.0); WHITE BLOOD COUNT (AUTO) 5.2 K/uL (4.3-11.0)
[2023-04-04 07:23] LABS: CALCIUM, SERUM 8.2 mg/dL (8.5-10.1); CREATININE 0.7 mg/dL (0.6-1.3); POTASSIUM 3.7 mmol/L (3.5-5.1)
[2023-04-04 07:30] VITALS: BP 135/51; TEMP 98.2; O2SAT 94
[2023-04-04] MEDS: TAMSULOSIN 0.4 MG CAP.SR.24H PO SCH (08:31)
[2023-04-04] MEDS: FINASTERIDE (5 MG) 5 MG TABLET PO SCH (08:31)
[2023-04-04 13:00] LABS: HEMOGLOBIN 9.5 g/dL (13.5-17.5)
[2023-04-04 16:00] VITALS: BP 134/58; TEMP 98.2; O2SAT 96
[2023-04-04 20:00] VITALS: BP 126/46; TEMP 99; O2SAT 96
[2023-04-04] MEDS: ACETAMINOPHEN 325 MG TABLET PO PRN (22:25)
[2023-04-05] VITALS: BP 128/52; TEMP 97.9; O2SAT 97
[2023-04-05 04:00] VITALS: BP 132/57; TEMP 97.9; O2SAT 95
[2023-04-05 07:12] LABS: BASOPHILS # (AUTO) 0.1 K/uL (0.0-0.2); BASOPHILS % (AUTO) 1.1 % (0.0-2.0); EOSINOPHILS # (AUTO) 0.1 K/uL (0.0-0.7); EOSINOPHILS % (AUTO) 2.2 % (0.0-6.0); HEMATOCRIT 28 % (39-51); HEMOGLOBIN 9.4 g/dL (13.5-17.5); LYMPHOCYTES % (AUTO) 18.5 % (20.0-44.0); MEAN CORPUSCULAR HEMOGLOBIN 27 PG (26.0-33.0); MEAN CORPUSCULAR HGB CONC 34 g/dl (31.0-36.0); MEAN CORPUSCULAR VOLUME 79 fL (80-96); MONOCYTES # (AUTO) 0.5 K/uL (0.1-1.30); MONOCYTES % (AUTO) 9.3 % (2.0-12.0); NEUTROPHILS # (AUTO) 3.8 K/uL (1.8-8.9); NEUTROPHILS % (AUTO) 68.9 % (43.0-81.0); PLATELET COUNT (AUTO) 256 K/uL (150-450); RED BLOOD CELL COUNT(AUTO) 3.49 MIL/uL (4.5-6.0); RED CELL DISTRIBUTION WIDTH 14.1 % (11.5-15.0); WHITE BLOOD COUNT (AUTO) 5.5 K/uL (4.3-11.0)
[2023-04-05 07:36] LABS: CALCIUM, SERUM 8.4 mg/dL (8.5-10.1); CREATININE 0.7 mg/dL (0.6-1.3); POTASSIUM 3.5 mmol/L (3.5-5.1)
[2023-04-05 08:00] VITALS: BP 125/49; TEMP 98.1; O2SAT 96
[2023-04-05] MEDS ORDERED: PANT40TA2 PO (10:39)
[2023-04-05] MEDS ORDERED: LEVETIRACETAM (250 MG) 250 MG TABLET PO SCH (21:00)
== END 2023-04-05 15:21 | disposition home or self-care (01) | DRG 392 ==
LOC: ER 07:31 → MED 11:27 → TELE 12:11
PROVIDERS: ADMIT Internal Medicine; ATTEND Internal Medicine
PROC: 0DB68ZX Excision of Stomach, Via Natural or Artificial Opening Endoscopic, Diagnostic (ICD-10-PCS; principal; 2023-04-04)
DX: K29.70 Gastritis, unspecified, without bleeding (principal); D62 Acute posthemorrhagic anemia; E87.1 Hypo-osmolality and hyponatremia; I10 Essential (primary) hypertension; E78.5 Hyperlipidemia, unspecified; D50.9 Iron deficiency anemia, unspecified; G40.909 Epilepsy, unspecified, not intractable, without status epilepticus; N40.0 Benign prostatic hyperplasia without lower urinary tract symptoms; Z90.49 Acquired absence of other specified parts of digestive tract; Z79.83 Long term (current) use of bisphosphonates; Z79.899 Other long term (current) drug therapy; Z98.890 Other specified postprocedural states; E86.1 Hypovolemia; T50.2X5A Adverse effect of carbonic-anhydrase inhibitors, benzothiadiazides and other diuretics, initial encounter; Y92.9 Unspecified place or not applicable; K21.9 Gastro-esophageal reflux disease without esophagitis; F17.200 Nicotine dependence, unspecified, uncomplicated; M81.0 Age-related osteoporosis without current pathological fracture
CPT/HCPCS: 36415; 71045-TC; 80048-TC; 80076-TC; 83690-TC; 83880; 84484-TC; 85025-TC; 85027-TC; 85730-TC; 86850-TC; 87086-TC; A4223; C9113; G0378; J1953; J7030; J7040; J7050

== ENCOUNTER 2023-04-20 06:58 | Day surgery (SDC) | payer MEDICARE, BC ==
[~2023-04-20 06:58] MED LIST changes: +CHOL100043 PO; -CHOL200026 PO; -ENOX40DI SQ; -HYDR-3974 PO; -HYDR-3980 PO; -LISI10TA29 PO; +PANT40TA2 PO; +PANT40TA49 PO; +POTA15TA PO; -SENN1TAB6 PO; +TAMS-12 PO
[2023-04-20] MEDS ORDERED: ANESTHESIA TRAY IN PYXIS 1 EA TRAY MC ONE (07:09)
[2023-04-20 07:59] LABS: BASOPHILS # (AUTO) 0.1 K/uL (0.0-0.2); BASOPHILS % (AUTO) 1.1 % (0.0-2.0); EOSINOPHILS # (AUTO) 0.2 K/uL (0.0-0.7); HEMATOCRIT 31 % (39-51); HEMOGLOBIN 10.3 g/dL (13.5-17.5); LYMPHOCYTES # (AUTO) 1.1 K/uL (0.8-4.8); MEAN CORPUSCULAR HEMOGLOBIN 26 PG (26.0-33.0); MEAN CORPUSCULAR HGB CONC 33 g/dl (31.0-36.0); MEAN CORPUSCULAR VOLUME 79 fL (80-96); MONOCYTES # (AUTO) 0.6 K/uL (0.1-1.30); MONOCYTES % (AUTO) 9.6 % (2.0-12.0); NEUTROPHILS # (AUTO) 4.2 K/uL (1.8-8.9); NEUTROPHILS % (AUTO) 68.3 % (43.0-81.0); PLATELET COUNT (AUTO) 370 K/uL (150-450); RED BLOOD CELL COUNT(AUTO) 3.95 MIL/uL (4.5-6.0); RED CELL DISTRIBUTION WIDTH 14.8 % (11.5-15.0); WHITE BLOOD COUNT (AUTO) 6.1 K/uL (4.3-11.0)
[2023-04-20 08:07] LABS: CALCIUM, SERUM 9.3 mg/dL (8.5-10.1); CREATININE 0.8 mg/dL (0.6-1.3)
[2023-04-20 08:10] LABS: INR 1.03 (0.91-1.10); PROTHROMBIN TIME 10.9 SECS (9.2-11.1)
== END 2023-04-20 10:56 | disposition home or self-care (01) ==
LOC: DS 06:58
PROVIDERS: ATTEND Surgery
DX: K92.1 Melena (principal); D12.9 Benign neoplasm of anus and anal canal; I10 Essential (primary) hypertension; E78.5 Hyperlipidemia, unspecified; Z98.890 Other specified postprocedural states; Z79.899 Other long term (current) drug therapy
CPT/HCPCS: 36415; 45380; 80048; 85025; 85610; J2704; J3490

== ENCOUNTER 2023-08-29 22:10 | Inpatient (IN) | payer MEDICARE, BC ==
[~2023-08-29] VITALS: Ht 167.6 cm; Wt 67.1 kg
[2023-08-29 23:10] VITALS: O2SAT 99
[2023-08-29] MEDS: IV NS 0.9% 1,000 ML BAG IV ONE (23:30)
[2023-08-29 23:42] LABS: BASOPHILS # (AUTO) 0.1 K/uL (0.0-0.2); BASOPHILS % (AUTO) 0.6 % (0.0-2.0); EOSINOPHILS % (AUTO) 0.2 % (0.0-6.0); HEMATOCRIT 31 % (39-51); HEMOGLOBIN 10.2 g/dL (13.5-17.5); LYMPHOCYTES # (AUTO) 0.9 K/uL (0.8-4.8); LYMPHOCYTES % (AUTO) 7.5 % (20.0-44.0); MEAN CORPUSCULAR HEMOGLOBIN 23 PG (26.0-33.0); MEAN CORPUSCULAR HGB CONC 33 g/dl (31.0-36.0); MEAN CORPUSCULAR VOLUME 71 fL (80-96); MONOCYTES # (AUTO) 1.2 K/uL (0.1-1.30); MONOCYTES % (AUTO) 9.9 % (2.0-12.0); NEUTROPHILS # (AUTO) 9.8 K/uL (1.8-8.9); NEUTROPHILS % (AUTO) 81.8 % (43.0-81.0); PLATELET COUNT (AUTO) 478 K/uL (150-450); RED BLOOD CELL COUNT(AUTO) 4.39 MIL/uL (4.5-6.0); RED CELL DISTRIBUTION WIDTH 17.2 % (11.5-15.0); WHITE BLOOD COUNT (AUTO) 11.9 K/uL (4.3-11.0)
[2023-08-29 23:53] LABS: CALCIUM, SERUM 8.9 mg/dL (8.5-10.1); CARBON DIOXIDE 24 mmol/L (21-32); CHLORIDE 97 mmol/L (98-107); CREATININE 1.5 mg/dL (0.6-1.3); GLUCOSE 137 mg/dL (74-106); POTASSIUM 3.6 mmol/L (3.5-5.1); SODIUM SERUM 136 mmol/L (136-145); UREA NITROGEN, BLOOD 35 mg/dL (7-18)
[2023-08-29 23:59] LABS: ALANINE AMINOTRANSFERASE 105 U/L (12-78); ALBUMIN 2.5 g/dL (3.4-5.0); ALKALINE PHOSPHATASE 612 U/L (46-116); ASPARTATE AMINOTRANSFERASE 142 U/L (15-37); BILIRUBIN,DIRECT 7.6 mg/dL (0.0-0.2); BILIRUBIN,TOTAL 8.4 mg/dL (0.2-1.0); TOTAL PROTEIN, SERUM 7.8 g/dL (6.4-8.2)
[2023-08-30 00:03] LABS: D-DIMER 2.29 mg/L(FEU (0.17-0.50); INR 1.11 (0.91-1.10); PARTIAL THROMBOPLASTIN TIME 28.8 SEC (24.3-34.3); PROTHROMBIN TIME 11.7 SECS (9.2-11.1)
[2023-08-30 00:04] LABS: MAGNESIUM 2.5 mg/dL (1.8-2.4)
[2023-08-30] MEDS ORDERED: CT SWABBABLE VALVE TRANS SET 1 EA INFUS.SET MC ONE (00:23)
[2023-08-30] MEDS ORDERED: IV NS 0.9% 250 ML IV ONE (00:23)
[2023-08-30] MEDS ORDERED: IOHEXOL-300 100 ML VIAL IV ONE (00:23)
[2023-08-30] MEDS ORDERED: MORPHINE SULFATE INJ 2 MG/ML DISP.SYRIN IV PRN (02:00)
[2023-08-30] MEDS ORDERED: Z GUARD REMEDY 4 OZ OINT TP PRN (02:00)
[2023-08-30] MEDS ORDERED: ZOLPIDEM TARTRATE 5 MG TABLET PO PRN (02:00)
[2023-08-30] MEDS ORDERED: MAGNESIUM HYDROXIDE 30 ML UDC PO PRN (02:00)
[2023-08-30] MEDS ORDERED: ACETAMINOPHEN 325 MG TABLET PO PRN (02:00)
[2023-08-30] MEDS ORDERED: ONDANSETRON HCL/PF 4 MG/2 ML VIAL IVP PRN (02:00)
[2023-08-30] MEDS ORDERED: MAG HYDROX/AL HYDROX/SIMETH 30 ML UDC PO PRN (02:00)
[2023-08-30 02:15] VITALS: BP 138/56; TEMP 97.3; O2SAT 98
[2023-08-30] MEDS: IV NS 0.9% 1,000 ML IV PRN (03:29)
[2023-08-30 06:59] LABS: BASOPHILS # (AUTO) 0.1 K/uL (0.0-0.2); BASOPHILS % (AUTO) 0.7 % (0.0-2.0); EOSINOPHILS % (AUTO) 0.3 % (0.0-6.0); HEMATOCRIT 29 % (39-51); HEMOGLOBIN 9.3 g/dL (13.5-17.5); LYMPHOCYTES # (AUTO) 0.9 K/uL (0.8-4.8); LYMPHOCYTES % (AUTO) 9.5 % (20.0-44.0); MEAN CORPUSCULAR HEMOGLOBIN 23 PG (26.0-33.0); MEAN CORPUSCULAR HGB CONC 32 g/dl (31.0-36.0); MEAN CORPUSCULAR VOLUME 72 fL (80-96); MONOCYTES % (AUTO) 10.6 % (2.0-12.0); NEUTROPHILS # (AUTO) 7.6 K/uL (1.8-8.9); NEUTROPHILS % (AUTO) 78.9 % (43.0-81.0); PLATELET COUNT (AUTO) 388 K/uL (150-450); RED CELL DISTRIBUTION WIDTH 17.2 % (11.5-15.0); WHITE BLOOD COUNT (AUTO) 9.6 K/uL (4.3-11.0)
[2023-08-30 07:12] LABS: ALBUMIN 1.9 g/dL (3.4-5.0); BILIRUBIN,TOTAL 6.7 mg/dL (0.2-1.0); CALCIUM, SERUM 7.8 mg/dL (8.5-10.1); MAGNESIUM 2.4 mg/dL (1.8-2.4); TOTAL PROTEIN, SERUM 6.4 g/dL (6.4-8.2)
[2023-08-30 08:00] VITALS: BP 133/55; TEMP 97.7; O2SAT 98
[2023-08-30] MEDS: PANTOPRAZOLE 40 MG VIAL IV SCH (08:40)
[2023-08-30] MEDS: POTASSIUM CL. PREMIX PERIPHER. 50 ML IV SCH (09:28)
[2023-08-30 15:19] LABS: APPEARANCE,URINE CLEAR (CLEAR); BILIRUBIN,URINE 2+ (NEGATIVE); BLOOD, URINE 3+ Ery/uL (NEGATIVE); COLOR,URINE YELLOW (YELLOW); KETONES,URINE NEGATIVE (NEGATIVE); LEUKOCYTE ESTERASE ,URINE NEGATIVE (NEGATIVE); NITRITE, URINE NEGATIVE (NEGATIVE); PH,URINE 5.5 (5.0-8.0); PROTEIN,URINE TRACE mg/dl (NEGATIVE); UGLUCOSE NEGATIVE (NEGATIVE)
[2023-08-30 15:33] LABS: RBC,URINE 21-50 /HPF (0-2)
[2023-08-30 15:34] LABS: ADD URINE CULTURE YES; BACTERIA,URINE 2+ /HPF (None Seen); WBC,URINE NONE SEEN /HPF (0-3)
[2023-08-30 15:36] LABS: COARSE GRANULAR CASTS,URINE Rare /LPF (None Seen)
[2023-08-30 15:37] LABS: CREATININE, URINE 81.3 MG/DL (30.0-125.0); URINE TOTAL PROTEIN 37.9 mg/dL (0-11.9)
[2023-08-30 16:00] VITALS: BP 139/60; TEMP 97.5; O2SAT 98
[2023-08-30] MEDS: Sodium Phosphate 15 MMOL in IV NS 0.9% 245 ML IV ONE (16:07)
[2023-08-30 16:24] LABS: EOSINOPHIL,URINE None Seen
[2023-08-30 20:00] VITALS: BP 123/49; TEMP 97.9; O2SAT 96
[2023-08-30] MEDS: LEVETIRACETAM (250 MG) 250 MG TABLET PO SCH (20:26)
[2023-08-31] VITALS (8 sets, daily range): BP systolic 108–144; BP diastolic 45–57; TEMP 97.3–98.4; O2SAT 95–99
[2023-08-31 06:51] LABS: BASOPHILS # (AUTO) 0.1 K/uL (0.0-0.2); BASOPHILS % (AUTO) 0.9 % (0.0-2.0); EOSINOPHILS # (AUTO) 0.1 K/uL (0.0-0.7); EOSINOPHILS % (AUTO) 0.9 % (0.0-6.0); HEMATOCRIT 29 % (39-51); HEMOGLOBIN 9.4 g/dL (13.5-17.5); LYMPHOCYTES # (AUTO) 1.2 K/uL (0.8-4.8); LYMPHOCYTES % (AUTO) 12.8 % (20.0-44.0); MEAN CORPUSCULAR HEMOGLOBIN 24 PG (26.0-33.0); MEAN CORPUSCULAR HGB CONC 33 g/dl (31.0-36.0); MEAN CORPUSCULAR VOLUME 72 fL (80-96); MONOCYTES # (AUTO) 0.8 K/uL (0.1-1.30); MONOCYTES % (AUTO) 8.4 % (2.0-12.0); NEUTROPHILS # (AUTO) 7.3 K/uL (1.8-8.9); PLATELET COUNT (AUTO) 409 K/uL (150-450); RED BLOOD CELL COUNT(AUTO) 3.94 MIL/uL (4.5-6.0); RED CELL DISTRIBUTION WIDTH 17.5 % (11.5-15.0); WHITE BLOOD COUNT (AUTO) 9.5 K/uL (4.3-11.0)
[2023-08-31 07:11] LABS: CALCIUM, SERUM 8.2 mg/dL (8.5-10.1); CARBON DIOXIDE 22 mmol/L (21-32); CHLORIDE 102 mmol/L (98-107); CREATININE 0.6 mg/dL (0.6-1.3); GLUCOSE 68 mg/dL (74-106); INR 1.11 (0.91-1.10); MAGNESIUM 2.1 mg/dL (1.8-2.4); PARTIAL THROMBOPLASTIN TIME 29.9 SEC (24.3-34.3); POTASSIUM 3.2 mmol/L (3.5-5.1); PROTHROMBIN TIME 11.7 SECS (9.2-11.1); SODIUM SERUM 135 mmol/L (136-145); UREA NITROGEN, BLOOD 17 mg/dL (7-18)
[2023-08-31 07:26] LABS: ALBUMIN 1.7 g/dL (3.4-5.0); BILIRUBIN,DIRECT 6.8 mg/dL (0.0-0.2); BILIRUBIN,TOTAL 7.5 mg/dL (0.2-1.0); TOTAL PROTEIN, SERUM 6.1 g/dL (6.4-8.2)
[2023-08-31 07:46] LABS: FREE PSA < 0.06 ng/mL (0.00-45)
[2023-08-31 07:47] LABS: PROSTATE SPECIFIC ANTIGEN SCR < 0.13 ng/mL (0.00-4.00)
[2023-08-31] MEDS: TAMSULOSIN 0.4 MG CAP.SR.24H PO SCH (09:00)
[2023-08-31] MEDS: FINASTERIDE (5 MG) 5 MG TABLET PO SCH (09:00)
[2023-08-31] MEDS: CYANOCOBALAMIN 500 MCG TABLET PO SCH (09:00)
[2023-08-31] MEDS: HYDROCHLOROTHIAZIDE 25 MG TABLET PO SCH (09:00)
[2023-08-31] MEDS: SIMVASTATIN 20 MG TABLET PO SCH (09:00)
[2023-08-31] MEDS: CHOLECALCIFEROL 1,000 UNIT TABLET (VIT D3) PO SCH (09:00)
[2023-08-31] MEDS: POTASSIUM CL. PREMIX PERIPHER. 50 ML IV SCH (11:35)
[2023-08-31] MEDS ORDERED: NALOXONE PREFILLED SYRINGE 2 MG/2 ML SYRINGE IV PRN (13:30)
[2023-08-31] MEDS ORDERED: FLUMAZENIL 0.5 MG VIAL IV PRN (13:30)
[2023-08-31] MEDS: FENTANYL PF 250MCG/5ML AMPUL IV PRN (13:51)
[2023-08-31] MEDS: MIDAZOLAM HCL 2 MG/2ML VIAL IV PRN (13:51)
[2023-08-31] MEDS ORDERED: CT SWABBABLE VALVE TRANS SET 1 EA INFUS.SET MC ONE (14:33)
[2023-08-31] MEDS ORDERED: IV NS 0.9% 250 ML IV ONE (14:33)
[2023-08-31] MEDS ORDERED: IOHEXOL-300 100 ML VIAL IV ONE (14:33)
[2023-08-31] MEDS: K PHOS NEUTRAL 250 MG TABLET PO ONE (15:45)
[2023-08-31] MEDS ORDERED: GADOTERATE MEGLUMINE 10 MMOL/20 ML VIAL IV ONE (17:56)
[2023-09-01 07:00] VITALS: BP 145/56; TEMP 97.9; O2SAT 95
[2023-09-01 07:08] LABS: BASOPHILS # (AUTO) 0.1 K/uL (0.0-0.2); BASOPHILS % (AUTO) 0.8 % (0.0-2.0); EOSINOPHILS # (AUTO) 0.1 K/uL (0.0-0.7); EOSINOPHILS % (AUTO) 0.8 % (0.0-6.0); HEMATOCRIT 29 % (39-51); HEMOGLOBIN 9.5 g/dL (13.5-17.5); MEAN CORPUSCULAR HEMOGLOBIN 24 PG (26.0-33.0); MEAN CORPUSCULAR HGB CONC 33 g/dl (31.0-36.0); MEAN CORPUSCULAR VOLUME 72 fL (80-96); MONOCYTES # (AUTO) 0.8 K/uL (0.1-1.30); MONOCYTES % (AUTO) 8.5 % (2.0-12.0); NEUTROPHILS # (AUTO) 7.9 K/uL (1.8-8.9); NEUTROPHILS % (AUTO) 79.9 % (43.0-81.0); PLATELET COUNT (AUTO) 435 K/uL (150-450); RED BLOOD CELL COUNT(AUTO) 3.98 MIL/uL (4.5-6.0); RED CELL DISTRIBUTION WIDTH 17.6 % (11.5-15.0); WHITE BLOOD COUNT (AUTO) 9.9 K/uL (4.3-11.0)
[2023-09-01 07:35] LABS: CREATININE 0.6 mg/dL (0.6-1.3); POTASSIUM 3.5 mmol/L (3.5-5.1)
[2023-09-01 07:45] VITALS: BP 128/62; TEMP 97.9; O2SAT 96
[2023-09-01 07:50] LABS: ALBUMIN 1.5 g/dL (3.4-5.0); TOTAL PROTEIN, SERUM 5.7 g/dL (6.4-8.2)
[2023-09-01 07:55] LABS: THYROID STIMULATING HORMONE 2.18 uIU/mL (0.358-3.74)
[2023-09-01 08:06] LABS: AFP, TUMOR MARKER <1.8 ng/mL (0.0-6.4); CARBOHYDRATE AG 19-9 298 U/mL (0-35)
[2023-09-01 14:10] LABS: HEPATITIS B SURFACE AB Non Reactive (.)
[2023-09-01] MEDS: K PHOS NEUTRAL 250 MG TABLET PO ONE (15:39)
[2023-09-01 16:00] VITALS: BP 127/58; TEMP 97.7; O2SAT 97
[2023-09-02 06:54] LABS: BASOPHILS # (AUTO) 0.1 K/uL (0.0-0.2); BASOPHILS % (AUTO) 0.8 % (0.0-2.0); EOSINOPHILS # (AUTO) 0.1 K/uL (0.0-0.7); EOSINOPHILS % (AUTO) 0.8 % (0.0-6.0); HEMATOCRIT 28 % (39-51); HEMOGLOBIN 9.3 g/dL (13.5-17.5); LYMPHOCYTES # (AUTO) 0.8 K/uL (0.8-4.8); LYMPHOCYTES % (AUTO) 7.6 % (20.0-44.0); MEAN CORPUSCULAR HEMOGLOBIN 24 PG (26.0-33.0); MEAN CORPUSCULAR HGB CONC 34 g/dl (31.0-36.0); MEAN CORPUSCULAR VOLUME 70 fL (80-96); MONOCYTES # (AUTO) 1.1 K/uL (0.1-1.30); MONOCYTES % (AUTO) 10.4 % (2.0-12.0); NEUTROPHILS # (AUTO) 8.4 K/uL (1.8-8.9); NEUTROPHILS % (AUTO) 80.4 % (43.0-81.0); PLATELET COUNT (AUTO) 416 K/uL (150-450); RED BLOOD CELL COUNT(AUTO) 3.97 MIL/uL (4.5-6.0); RED CELL DISTRIBUTION WIDTH 17.7 % (11.5-15.0); WHITE BLOOD COUNT (AUTO) 10.5 K/uL (4.3-11.0)
[2023-09-02 07:00] VITALS: BP 135/54; TEMP 97.4; O2SAT 95
[2023-09-02 07:18] LABS: CALCIUM, SERUM 8.6 mg/dL (8.5-10.1); CREATININE 0.6 mg/dL (0.6-1.3); MAGNESIUM 1.7 mg/dL (1.8-2.4); PHOSPHORUS 2.7 mg/dL (2.5-4.9); POTASSIUM 3.1 mmol/L (3.5-5.1)
[2023-09-02 07:26] LABS: ALBUMIN 1.7 g/dL (3.4-5.0); TOTAL PROTEIN, SERUM 5.9 g/dL (6.4-8.2)
[2023-09-02] MEDS: Magnesium 1GM/D5W 100ML PREMIX 100 ML IV SCH (10:33)
[2023-09-02] MEDS: POTASSIUM CHLORIDE 20 MEQ TAB.PRT.SR PO SCH (10:33)
[2023-09-02] MEDS: ENSURE ENLIVE 237 ML LIQUID (VANILLA) PO SCH (15:15)
[2023-09-02] MEDS: SOD FERRIC GLUC 125 MG in IV NS 0.9% 100 ML IV SCH (15:15)
[2023-09-02 16:00] VITALS: BP 123/58; TEMP 97.7; O2SAT 95
[2023-09-02 20:03] VITALS: BP 119/45; TEMP 97.7; O2SAT 94
[2023-09-02 23:06] LABS: FOLIC ACID 5.3 ng/mL (>3.0)
[2023-09-03 07:25] LABS: BASOPHILS % (AUTO) 0.5 % (0.0-2.0); EOSINOPHILS # (AUTO) 0.1 K/uL (0.0-0.7); HEMATOCRIT 25 % (39-51); HEMOGLOBIN 8.6 g/dL (13.5-17.5); LYMPHOCYTES % (AUTO) 9.7 % (20.0-44.0); MEAN CORPUSCULAR HEMOGLOBIN 24 PG (26.0-33.0); MEAN CORPUSCULAR HGB CONC 34 g/dl (31.0-36.0); MEAN CORPUSCULAR VOLUME 71 fL (80-96); MONOCYTES # (AUTO) 1.2 K/uL (0.1-1.30); MONOCYTES % (AUTO) 11.9 % (2.0-12.0); NEUTROPHILS # (AUTO) 7.6 K/uL (1.8-8.9); NEUTROPHILS % (AUTO) 76.9 % (43.0-81.0); PLATELET COUNT (AUTO) 355 K/uL (150-450); RED BLOOD CELL COUNT(AUTO) 3.56 MIL/uL (4.5-6.0); RED CELL DISTRIBUTION WIDTH 17.1 % (11.5-15.0); WHITE BLOOD COUNT (AUTO) 9.9 K/uL (4.3-11.0)
[2023-09-03 07:50] LABS: ALANINE AMINOTRANSFERASE 97 U/L (12-78); ALBUMIN 1.5 g/dL (3.4-5.0); ALKALINE PHOSPHATASE 693 U/L (46-116); ASPARTATE AMINOTRANSFERASE 196 U/L (15-37); BILIRUBIN,DIRECT 7.8 mg/dL (0.0-0.2); BILIRUBIN,TOTAL 9.3 mg/dL (0.2-1.0); CALCIUM, SERUM 8.6 mg/dL (8.5-10.1); CARBON DIOXIDE 25 mmol/L (21-32); CHLORIDE 98 mmol/L (98-107); CREATININE 0.6 mg/dL (0.6-1.3); GLUCOSE 97 mg/dL (74-106); MAGNESIUM 1.9 mg/dL (1.8-2.4); PHOSPHORUS 2.2 mg/dL (2.5-4.9); POTASSIUM 3.3 mmol/L (3.5-5.1); SODIUM SERUM 131 mmol/L (136-145); TOTAL PROTEIN, SERUM 5.5 g/dL (6.4-8.2); UREA NITROGEN, BLOOD 9 mg/dL (7-18)
[2023-09-03 08:00] VITALS: BP 134/56; TEMP 97.6; O2SAT 93
[2023-09-03 08:09] LABS: IMMUNOGLOBULIN A, SERUM 309 mg/dL (61-437); IMMUNOGLOBULIN G, SERUM 934 mg/dL (603-1613); IMMUNOGLOBULIN M, SERUM 212 mg/dL (15-143)
[2023-09-03] MEDS: PANTOPRAZOLE 40 MG TABLET.DR PO SCH (08:25)
[2023-09-03] MEDS: POTASSIUM CHLORIDE 20 MEQ TAB.PRT.SR PO SCH (09:42)
[2023-09-03 12:20] LABS: URINE SODIUM, RANDOM 156 mmol/l (40-220)
[2023-09-03] MEDS: DOCUSATE SODIUM 100 MG CAPSULE PO SCH (13:57)
[2023-09-03 15:09] LABS: FREE KAPPA LT CHAINS SERUM 43.3 mg/L (3.3-19.4); FREE LAMBDA LT CHAIN SERUM 32.3 mg/L (5.7-26.3); KAPPA/LAMBDA RATIO SERUM 1.34 (0.26-1.65)
[2023-09-03 16:00] VITALS: BP 129/52; TEMP 98.2; O2SAT 96
[2023-09-03] MEDS: K PHOS NEUTRAL 250 MG TABLET PO ONE (16:06)
[2023-09-03] MEDS: PEG 3350/NA SULF,BICARB,CL/KCL 4,000 ML BOTTLE PO ONE (18:55)
[2023-09-03 20:00] VITALS: BP 123/55; TEMP 97.7; O2SAT 97
[2023-09-04 06:58] LABS: HEMATOCRIT 27 % (39-51); HEMOGLOBIN 9.2 g/dL (13.5-17.5); MEAN CORPUSCULAR HEMOGLOBIN 24 PG (26.0-33.0); MEAN CORPUSCULAR HGB CONC 34 g/dl (31.0-36.0); MEAN CORPUSCULAR VOLUME 71 fL (80-96); PLATELET COUNT (AUTO) 370 K/uL (150-450); RED BLOOD CELL COUNT(AUTO) 3.81 MIL/uL (4.5-6.0); RED CELL DISTRIBUTION WIDTH 17.7 % (11.5-15.0); WHITE BLOOD COUNT (AUTO) 12.4 K/uL (4.3-11.0)
[2023-09-04 07:01] LABS: INR 1.25 (0.91-1.10); PROTHROMBIN TIME 13.1 SECS (9.2-11.1)
[2023-09-04 07:06] LABS: CALCIUM, SERUM 8.4 mg/dL (8.5-10.1); CARBON DIOXIDE 26 mmol/L (21-32); CHLORIDE 93 mmol/L (98-107); CREATININE 0.5 mg/dL (0.6-1.3); GLUCOSE 85 mg/dL (74-106); MAGNESIUM 1.6 mg/dL (1.8-2.4); PHOSPHORUS 2.3 mg/dL (2.5-4.9); POTASSIUM 3.5 mmol/L (3.5-5.1); SODIUM SERUM 130 mmol/L (136-145); UREA NITROGEN, BLOOD 9 mg/dL (7-18)
[2023-09-04 08:00] VITALS: BP 127/53; TEMP 97.7; O2SAT 94
[2023-09-04 08:28] LABS: BAND % (MANUAL) 1 % (0.0-5.0); EOSINOPHILS % (MANUAL) 1 % (0-4); LYMPHOCYTES % (MANUAL) 6 % (16-48); MONOCYTES % (MANUAL) 7 % (0-11.0); NEUTROPHILS % (MANUAL) 85 (42-76); PLATELET ESTIMATE ADEQUATE
[2023-09-04 08:29] LABS: ANISOCYTOSIS 1+
[2023-09-04 08:30] LABS: HYPOCHROMASIA 1+
[2023-09-04] MEDS: Magnesium 1GM/D5W 100ML PREMIX 100 ML IV SCH (09:53)
[2023-09-04 11:15] LABS: OSMOLALITY,URINE 554 mOS/kg (340-1090)
[2023-09-04] MEDS: Sodium Phosphate 15 MMOL in IV NS 0.9% 245 ML IV SCH (15:59)
[2023-09-04 16:00] VITALS: BP 129/53; TEMP 97.9; O2SAT 95
[2023-09-04 20:00] VITALS: BP 126/57; TEMP 97.9; O2SAT 97
[2023-09-05 07:08] LABS: *SPE A/G RATIO 0.7 (0.7-1.7); *SPE ALBUMIN 2.1 g/dL (2.9-4.4); *SPE ALPHA-1-GLOBULIN 0.3 g/dL (0.0-0.4); *SPE ALPHA-2-GLOBULIN 0.8 g/dL (0.4-1.0); *SPE GLOBULIN, TOTAL 3.1 g/dL (2.2-3.9); *SPE M-SPIKE Not Observed g/dL (Not Observed); *SPE PROTEIN TOTAL 5.2 g/dL (6.0-8.5); *SPEGAMMA GLOBULIN 0.9 g/dL (0.4-1.8)
[2023-09-05 07:30] VITALS: BP 121/55; TEMP 97.7; O2SAT 94
[2023-09-05 07:41] LABS: CALCIUM, SERUM 8.5 mg/dL (8.5-10.1); CARBON DIOXIDE 23 mmol/L (21-32); CHLORIDE 94 mmol/L (98-107); CREATININE 0.5 mg/dL (0.6-1.3); GLUCOSE 63 mg/dL (74-106); PHOSPHORUS 3.1 mg/dL (2.5-4.9); POTASSIUM 3.4 mmol/L (3.5-5.1); SODIUM SERUM 132 mmol/L (136-145); UREA NITROGEN, BLOOD 13 mg/dL (7-18)
[2023-09-05 07:42] LABS: BASOPHILS # (AUTO) 0.2 K/uL (0.0-0.2); BASOPHILS % (AUTO) 1.5 % (0.0-2.0); EOSINOPHILS # (AUTO) 0.1 K/uL (0.0-0.7); EOSINOPHILS % (AUTO) 0.5 % (0.0-6.0); HEMATOCRIT 28 % (39-51); HEMOGLOBIN 9.4 g/dL (13.5-17.5); LYMPHOCYTES # (AUTO) 6.1 K/uL (0.8-4.8); LYMPHOCYTES % (AUTO) 52.3 % (20.0-44.0); MEAN CORPUSCULAR HEMOGLOBIN 24 PG (26.0-33.0); MEAN CORPUSCULAR HGB CONC 33 g/dl (31.0-36.0); MEAN CORPUSCULAR VOLUME 72 fL (80-96); MONOCYTES # (AUTO) 1.5 K/uL (0.1-1.30); MONOCYTES % (AUTO) 13.3 % (2.0-12.0); NEUTROPHILS # (AUTO) 3.8 K/uL (1.8-8.9); NEUTROPHILS % (AUTO) 32.4 % (43.0-81.0); PLATELET COUNT (AUTO) 378 K/uL (150-450); RED BLOOD CELL COUNT(AUTO) 3.94 MIL/uL (4.5-6.0); RED CELL DISTRIBUTION WIDTH 18.6 % (11.5-15.0); WHITE BLOOD COUNT (AUTO) 11.7 K/uL (4.3-11.0)
[2023-09-05 08:09] LABS: ALBUMIN 1.5 g/dL (3.4-5.0); BILIRUBIN,DIRECT 11.7 mg/dL (0.0-0.2); BILIRUBIN,TOTAL 13.4 mg/dL (0.2-1.0); TOTAL PROTEIN, SERUM 5.7 g/dL (6.4-8.2)
[2023-09-05] MEDS: POTASSIUM CHLORIDE 20 MEQ TAB.PRT.SR PO SCH (09:31)
[2023-09-05] MEDS: MEGESTROL ACETATE SUSP 400 MG/10 ML UDC PO SCH (12:19)
[2023-09-05] MEDS: ALENDRONATE 70 MG TABLET PO SCH (15:09)
[2023-09-05 16:00] VITALS: BP 120/51; TEMP 98; O2SAT 94
[2023-09-05 18:48] LABS: EOSINOPHILS % (MANUAL) 1 % (0-4); LYMPHOCYTES % (MANUAL) 9 % (16-48); MONOCYTES % (MANUAL) 7 % (0-11.0); NEUTROPHILS % (MANUAL) 83 (42-76)
[2023-09-05 18:49] LABS: ANISOCYTOSIS 1+; HYPOCHROMASIA 1+; PLATELET ESTIMATE ADEQUATE
[2023-09-05 20:00] VITALS: BP 109/48; TEMP 98.1; O2SAT 94
[2023-09-06 06:34] LABS: BASOPHILS # (AUTO) 0.2 K/uL (0.0-0.2); EOSINOPHILS % (AUTO) 0.4 % (0.0-6.0); HEMATOCRIT 26 % (39-51); HEMOGLOBIN 8.8 g/dL (13.5-17.5); LYMPHOCYTES # (AUTO) 3.9 K/uL (0.8-4.8); LYMPHOCYTES % (AUTO) 33.4 % (20.0-44.0); MEAN CORPUSCULAR HEMOGLOBIN 25 PG (26.0-33.0); MEAN CORPUSCULAR HGB CONC 34 g/dl (31.0-36.0); MEAN CORPUSCULAR VOLUME 73 fL (80-96); MONOCYTES # (AUTO) 1.3 K/uL (0.1-1.30); MONOCYTES % (AUTO) 11.3 % (2.0-12.0); NEUTROPHILS # (AUTO) 6.2 K/uL (1.8-8.9); NEUTROPHILS % (AUTO) 52.9 % (43.0-81.0); PLATELET COUNT (AUTO) 355 K/uL (150-450); RED BLOOD CELL COUNT(AUTO) 3.58 MIL/uL (4.5-6.0); RED CELL DISTRIBUTION WIDTH 18.8 % (11.5-15.0); WHITE BLOOD COUNT (AUTO) 11.8 K/uL (4.3-11.0)
[2023-09-06 06:42] LABS: ALBUMIN 1.5 g/dL (3.4-5.0); BILIRUBIN,DIRECT 12.2 mg/dL (0.0-0.2); TOTAL PROTEIN, SERUM 5.5 g/dL (6.4-8.2)
[2023-09-06 06:48] LABS: CALCIUM, SERUM 8.8 mg/dL (8.5-10.1); CREATININE 0.6 mg/dL (0.6-1.3); MAGNESIUM 2.1 mg/dL (1.8-2.4); PHOSPHORUS 2.4 mg/dL (2.5-4.9); POTASSIUM 3.6 mmol/L (3.5-5.1)
[2023-09-06 07:30] VITALS: BP 124/73; TEMP 97.9; O2SAT 93
[2023-09-06 11:52] LABS: ANISOCYTOSIS 1+; BASOPHILS % (MANUAL) 0 % (0.0-2.0); EOSINOPHILS % (MANUAL) 1 % (0-4); HYPOCHROMASIA 1+; LYMPHOCYTES % (MANUAL) 4 % (16-48); MONOCYTES % (MANUAL) 5 % (0-11.0); NEUTROPHILS % (MANUAL) 90 (42-76); PLATELET ESTIMATE ADEQUATE
[2023-09-06 11:53] LABS: STOMATOCYTES 1+; TARGET CELLS 1+
[2023-09-06 16:00] VITALS: BP 111/51; TEMP 97.5; O2SAT 93
[2023-09-06] MEDS: K PHOS NEUTRAL 250 MG TABLET PO ONE (16:37)
[2023-09-06 20:00] VITALS: BP 107/52; TEMP 97.6; O2SAT 93
[2023-09-07 07:30] VITALS: BP 113/49; TEMP 97.5; O2SAT 93
[2023-09-07 20:00] VITALS: BP 106/50; TEMP 98.4; O2SAT 92
[2023-09-07 20:17] VITALS: BP 106/50; TEMP 98.4; O2SAT 92
[2023-09-08 07:30] VITALS: BP 104/50; TEMP 97.7; O2SAT 92
[2023-09-08 07:31] LABS: INR 1.34 (0.91-1.10); PARTIAL THROMBOPLASTIN TIME 35.3 SEC (24.3-34.3); PROTHROMBIN TIME 13.9 SECS (9.2-11.1)
[2023-09-08 07:43] LABS: BASOPHILS # (AUTO) 0.2 K/uL (0.0-0.2); BASOPHILS % (AUTO) 1.7 % (0.0-2.0); EOSINOPHILS % (AUTO) 0.3 % (0.0-6.0); HEMATOCRIT 27 % (39-51); HEMOGLOBIN 8.8 g/dL (13.5-17.5); LYMPHOCYTES # (AUTO) 7.1 K/uL (0.8-4.8); LYMPHOCYTES % (AUTO) 61.4 % (20.0-44.0); MEAN CORPUSCULAR HEMOGLOBIN 25 PG (26.0-33.0); MEAN CORPUSCULAR HGB CONC 33 g/dl (31.0-36.0); MEAN CORPUSCULAR VOLUME 74 fL (80-96); MONOCYTES # (AUTO) 0.5 K/uL (0.1-1.30); MONOCYTES % (AUTO) 4.4 % (2.0-12.0); NEUTROPHILS # (AUTO) 3.7 K/uL (1.8-8.9); NEUTROPHILS % (AUTO) 32.2 % (43.0-81.0); PLATELET COUNT (AUTO) 354 K/uL (150-450); RED BLOOD CELL COUNT(AUTO) 3.57 MIL/uL (4.5-6.0); RED CELL DISTRIBUTION WIDTH 22.8 % (11.5-15.0); WHITE BLOOD COUNT (AUTO) 11.6 K/uL (4.3-11.0)
[2023-09-08 08:19] LABS: ALANINE AMINOTRANSFERASE 112 U/L (12-78); ALKALINE PHOSPHATASE 860 U/L (46-116); ASPARTATE AMINOTRANSFERASE 196 U/L (15-37); BILIRUBIN,TOTAL 14.2 mg/dL (0.2-1.0); CALCIUM, SERUM 8.6 mg/dL (8.5-10.1); CARBON DIOXIDE 24 mmol/L (21-32); CHLORIDE 92 mmol/L (98-107); CREATININE 0.6 mg/dL (0.6-1.3); GLUCOSE 89 mg/dL (74-106); POTASSIUM 3.1 mmol/L (3.5-5.1); SODIUM SERUM 126 mmol/L (136-145); TOTAL PROTEIN, SERUM 5.5 g/dL (6.4-8.2); UREA NITROGEN, BLOOD 22 mg/dL (7-18)
[2023-09-08 08:31] LABS: ALBUMIN 1.4 g/dL (3.4-5.0)
[2023-09-08] MEDS ORDERED: POTASSIUM CHLORIDE 20 MEQ TAB.PRT.SR PO SCH (10:30)
[2023-09-08] MEDS: POTASSIUM CL. PREMIX PERIPHER. 50 ML IV SCH (11:27)
[2023-09-08 12:44] LABS: ANISOCYTOSIS 1+; BASOPHILS % (MANUAL) 0 % (0.0-2.0); EOSINOPHILS % (MANUAL) 0 % (0-4); HYPOCHROMASIA 1+; LYMPHOCYTES % (MANUAL) 7 % (16-48); MONOCYTES % (MANUAL) 6 % (0-11.0); NEUTROPHILS % (MANUAL) 87 (42-76); OVALOCYTES 1+; PLATELET ESTIMATE ADEQUATE; TARGET CELLS 1+
[2023-09-08] MEDS ORDERED: IOHEXOL 0 ML IV ONE (13:22)
[2023-09-08] MEDS ORDERED: ANESTHESIA TRAY IN PYXIS 1 EA TRAY MC ONE (13:22)
[2023-09-08] MEDS ORDERED: HEPARIN SODIUM, PORCINE 1,000 UNIT/ML VIAL ONE (13:22)
[2023-09-08] MEDS ORDERED: LIDOCAINE 1% INJ 50 ML MDV IJ ONE (13:22)
[2023-09-08] MEDS ORDERED: ALBUMIN 5% 500 ML IV ONE (13:55)
[2023-09-08] MEDS ORDERED: MIDAZOLAM HCL 2 MG/2ML VIAL ONE (13:55)
[2023-09-08] MEDS ORDERED: BUPIVACAINE 0.5 % PF 150 MG/30 ML VIAL ONE (14:24)
[2023-09-08] MEDS ORDERED: BUPIVACAINE MPF 0.5% W/EPI INJ 30 ML VIAL ONE (14:28)
[2023-09-08] MEDS ORDERED: FLUMAZENIL 0.5 MG VIAL ONE (15:03)
[2023-09-08 20:00] VITALS: BP 118/54; TEMP 97.7; O2SAT 95
[2023-09-09 07:42] LABS: EOSINOPHILS % (AUTO) 0.2 % (0.0-6.0); HEMATOCRIT 23 % (39-51); LYMPHOCYTES % (AUTO) 62.7 % (20.0-44.0); MEAN CORPUSCULAR HEMOGLOBIN 26 PG (26.0-33.0); MEAN CORPUSCULAR HGB CONC 34 g/dl (31.0-36.0); MEAN CORPUSCULAR VOLUME 75 fL (80-96); MONOCYTES # (AUTO) 1.6 K/uL (0.1-1.30); NEUTROPHILS # (AUTO) 2.6 K/uL (1.8-8.9); NEUTROPHILS % (AUTO) 23.1 % (43.0-81.0); PLATELET COUNT (AUTO) 316 K/uL (150-450); RED BLOOD CELL COUNT(AUTO) 3.12 MIL/uL (4.5-6.0); WHITE BLOOD COUNT (AUTO) 11.1 K/uL (4.3-11.0)
[2023-09-09 07:56] LABS: CARBON DIOXIDE 24 mmol/L (21-32); CHLORIDE 93 mmol/L (98-107); CREATININE 0.5 mg/dL (0.6-1.3); GLUCOSE 81 mg/dL (74-106); POTASSIUM 3.2 mmol/L (3.5-5.1); SODIUM SERUM 129 mmol/L (136-145); UREA NITROGEN, BLOOD 14 mg/dL (7-18)
[2023-09-09 08:27] VITALS: BP 116/50; TEMP 97.8; O2SAT 94
[2023-09-09] MEDS ORDERED: POTASSIUM CHLORIDE 20 MEQ TAB.PRT.SR PO SCH (10:00)
[2023-09-09 11:48] LABS: ANISOCYTOSIS 1+; BASOPHILS % (MANUAL) 0 % (0.0-2.0); EOSINOPHILS % (MANUAL) 0 % (0-4); HYPOCHROMASIA 1+; LYMPHOCYTES % (MANUAL) 4 % (16-48); MONOCYTES % (MANUAL) 5 % (0-11.0); NEUTROPHILS % (MANUAL) 91 (42-76); PLATELET ESTIMATE ADEQUATE; STOMATOCYTES 1+
== END 2023-09-09 10:00 | disposition home health service (06) | DRG 420 ==
LOC: ER 22:11 → MED 08-30 01:50
PROVIDERS: ADMIT Nurse Practitioner Family; ATTEND Nurse Practitioner Acute Care
PROC: 0FB14ZX Excision of Right Lobe Liver, Percutaneous Endoscopic Approach, Diagnostic (ICD-10-PCS; principal; 2023-08-31)
PROC: 0JH63WZ Insertion of Totally Implantable Vascular Access Device into Chest Subcutaneous Tissue and Fascia, Percutaneous Approach (ICD-10-PCS; 2023-09-08)
PROC: 02HV33Z Insertion of Infusion Device into Superior Vena Cava, Percutaneous Approach (ICD-10-PCS; 2023-09-08)
PROC: B548ZZA Ultrasonography of Superior Vena Cava, Guidance (ICD-10-PCS; 2023-09-08)
DX: C78.7 Secondary malignant neoplasm of liver and intrahepatic bile duct (principal); E43 Unspecified severe protein-calorie malnutrition; K72.00 Acute and subacute hepatic failure without coma; N17.0 Acute kidney failure with tubular necrosis; K83.1 Obstruction of bile duct; E87.1 Hypo-osmolality and hyponatremia; C79.72 Secondary malignant neoplasm of left adrenal gland; C18.9 Malignant neoplasm of colon, unspecified; D68.9 Coagulation defect, unspecified; R64 Cachexia; N40.0 Benign prostatic hyperplasia without lower urinary tract symptoms; E83.42 Hypomagnesemia; E88.09 Other disorders of plasma-protein metabolism, not elsewhere classified; Z90.49 Acquired absence of other specified parts of digestive tract; Z85.828 Personal history of other malignant neoplasm of skin; Z79.899 Other long term (current) drug therapy; Z53.20 Procedure and treatment not carried out because of patient's decision for unspecified reasons; M89.8X9 Other specified disorders of bone, unspecified site; M81.0 Age-related osteoporosis without current pathological fracture; E80.6 Other disorders of bilirubin metabolism; R74.01 Elevation of levels of liver transaminase levels; Z79.83 Long term (current) use of bisphosphonates; E87.6 Hypokalemia; I10 Essential (primary) hypertension; D50.9 Iron deficiency anemia, unspecified; E83.51 Hypocalcemia; F17.210 Nicotine dependence, cigarettes, uncomplicated; E78.5 Hyperlipidemia, unspecified; E27.8 Other specified disorders of adrenal gland; E83.39 Other disorders of phosphorus metabolism; K59.00 Constipation, unspecified; R59.0 Localized enlarged lymph nodes
CPT/HCPCS: 36415; 71045-TC; 71260-TC; 74183; 76705-TC; 77012-TC; 80048-TC; 80053-TC; 80076-TC; 81001; 82105; 82150-TC; 82378; 82550-TC; 82570-TC; 82607-TC; 82728-TC; 82784; 83540-TC; 83690-TC; 83735-TC; 83880; 83935-TC; 84100-TC; 84153-TC; 84154-TC; 84155; 84165; 84300-TC; 84443-TC; 84484-TC; 85025-TC; 85396; 85610-TC; 85730-TC; 86301; 86334; 86706; 86803; 86850-TC; 87340; 97112-TC; 97116-TC; 97530-TC; A4223; A9563; A9575; C1788; G0378; J1644; J2250; J2470; J2916; J3010; J3475; J3480; J3490; J7030; J7040; J7050; P9045; Q9967

== ENCOUNTER 2023-09-21 13:30 | Inpatient (IN) | payer MEDICARE, BC ==
[~2023-09-21] VITALS: Ht 167.6 cm; Wt 71.2 kg
[2023-09-21] VITALS (18 sets, daily range): BP systolic 79–111; BP diastolic 38–93; TEMP 97.6–98; O2SAT 96–100
[~2023-09-21 13:30] MED LIST changes: -PANT40TA2 PO
[2023-09-21] MEDS: IV NS 0.9% 1,000 ML BAG IV ONE ×2 (14:14→15:26)
[2023-09-21 14:31] LABS: BASOPHILS # (AUTO) 0.2 K/uL (0.0-0.2); EOSINOPHILS % (AUTO) 0.1 % (0.0-6.0); HEMATOCRIT 22 % (39-51); LYMPHOCYTES # (AUTO) 2.9 K/uL (0.8-4.8); LYMPHOCYTES % (AUTO) 18.3 % (20.0-44.0); MEAN CORPUSCULAR HEMOGLOBIN 28 PG (26.0-33.0); MEAN CORPUSCULAR HGB CONC 31 g/dl (31.0-36.0); MEAN CORPUSCULAR VOLUME 89 fL (80-96); MONOCYTES # (AUTO) 1.2 K/uL (0.1-1.30); MONOCYTES % (AUTO) 7.4 % (2.0-12.0); NEUTROPHILS # (AUTO) 11.5 K/uL (1.8-8.9); NEUTROPHILS % (AUTO) 73.2 % (43.0-81.0); PLATELET COUNT (AUTO) 335 K/uL (150-450); RED BLOOD CELL COUNT(AUTO) 2.44 MIL/uL (4.5-6.0); RED CELL DISTRIBUTION WIDTH 26.6 % (11.5-15.0); WHITE BLOOD COUNT (AUTO) 15.8 K/uL (4.3-11.0)
[2023-09-21 14:39] LABS: INR 2.01 (0.91-1.10); PROTHROMBIN TIME 20.4 SECS (9.2-11.1)
[2023-09-21 14:45] LABS: HEMOGLOBIN 6.8 g/dL (13.5-17.5)
[2023-09-21 14:58] LABS: ALANINE AMINOTRANSFERASE 95 U/L (12-78); ASPARTATE AMINOTRANSFERASE 245 U/L (15-37); BILIRUBIN,DIRECT 19.4 mg/dL (0.0-0.2); BILIRUBIN,TOTAL 21.9 mg/dL (0.2-1.0); CARBON DIOXIDE 12 mmol/L (21-32); CHLORIDE 96 mmol/L (98-107); CREATININE 2.6 mg/dL (0.6-1.3); GLUCOSE 106 mg/dL (74-106); POTASSIUM 4.1 mmol/L (3.5-5.1); SODIUM SERUM 131 mmol/L (136-145); TOTAL PROTEIN, SERUM 5.6 g/dL (6.4-8.2); UREA NITROGEN, BLOOD 68 mg/dL (7-18)
[2023-09-21 14:59] LABS: ALKALINE PHOSPHATASE 1280 U/L (46-116)
[2023-09-21 15:01] LABS: ALBUMIN 1.3 g/dL (3.4-5.0)
[2023-09-21 15:06] LABS: LACTIC ACID 3.4 mmol/L (0.4-2.0)
[2023-09-21] MEDS: CEFEPIME 1 GM in IV D5W 50 ML IV ONE (15:27)
[2023-09-21] MEDS: VANCOMYCIN 1 GM in IV D5W 250 ML IV ONE (15:52)
[2023-09-21] MEDS ORDERED: Z GUARD REMEDY 4 OZ OINT TP PRN (16:30)
[2023-09-21] MEDS ORDERED: ONDANSETRON HCL/PF 4 MG/2 ML VIAL IVP PRN (16:30)
[2023-09-21] MEDS ORDERED: ACETAMINOPHEN 325 MG TABLET PO PRN (16:30)
[2023-09-21] MEDS ORDERED: MAG HYDROX/AL HYDROX/SIMETH 30 ML UDC PO PRN (16:30)
[2023-09-21] MEDS ORDERED: MAGNESIUM HYDROXIDE 30 ML UDC PO PRN (16:30)
[2023-09-21 17:12] LABS: APPEARANCE,URINE SLIGHTLY CLOUDY (CLEAR); BILIRUBIN,URINE 3+ (NEGATIVE); BLOOD, URINE TRACE-INTA Ery/uL (NEGATIVE); COLOR,URINE AMBER (YELLOW); KETONES,URINE NEGATIVE (NEGATIVE); LEUKOCYTE ESTERASE ,URINE 3+ (NEGATIVE); NITRITE, URINE NEGATIVE (NEGATIVE); PH,URINE 7.5 (5.0-8.0); PROTEIN,URINE TRACE mg/dl (NEGATIVE); UGLUCOSE TRACE mg/dL (NEGATIVE); UROBILINOGEN,URINE 0.2 EU/dL (0.2)
[2023-09-21 17:13] LABS: ADD URINE CULTURE YES; BACTERIA,URINE 2+ /HPF (None Seen); RBC,URINE 0-2 /HPF (0-2); SQUAMOUS EPITHELIAL CELL,UR Few /HPF (None Seen); WBC,URINE 21-50 /HPF (0-3)
[2023-09-21 17:19] LABS: ANISOCYTOSIS 2+; BAND % (MANUAL) 1 % (0.0-5.0); LYMPHOCYTES % (MANUAL) 1 % (16-48); MONOCYTES % (MANUAL) 5 % (0-11.0); NEUTROPHILS % (MANUAL) 93 (42-76); PLATELET ESTIMATE ADEQUATE
[2023-09-21] MEDS: IV NS 0.9% 1,000 ML IV SCH (17:31)
[2023-09-21] MEDS: LEVETIRACETAM (250 MG) 250 MG TABLET PO SCH (21:00)
[2023-09-22] VITALS (19 sets, daily range): BP systolic 89–112; BP diastolic 43–69; TEMP 97.1–98.5; O2SAT 74–99
[2023-09-22 05:11] LABS: ALANINE AMINOTRANSFERASE 110 U/L (12-78); ASPARTATE AMINOTRANSFERASE 313 U/L (15-37); BILIRUBIN,DIRECT 15.7 mg/dL (0.0-0.2); BILIRUBIN,TOTAL 19.3 mg/dL (0.2-1.0); CALCIUM, SERUM 7.3 mg/dL (8.5-10.1); CARBON DIOXIDE 11 mmol/L (21-32); CHLORIDE 104 mmol/L (98-107); CREATININE 1.7 mg/dL (0.6-1.3); GLUCOSE 88 mg/dL (74-106); MAGNESIUM 2.2 mg/dL (1.8-2.4); PHOSPHORUS 3.7 mg/dL (2.5-4.9); POTASSIUM 3.6 mmol/L (3.5-5.1); SODIUM SERUM 132 mmol/L (136-145); UREA NITROGEN, BLOOD 58 mg/dL (7-18)
[2023-09-22 05:23] LABS: BASOPHILS % (AUTO) 0.4 % (0.0-2.0); EOSINOPHILS # (AUTO) 0.1 K/uL (0.0-0.7); EOSINOPHILS % (AUTO) 0.6 % (0.0-6.0); HEMATOCRIT 29 % (39-51); HEMOGLOBIN 8.8 g/dL (13.5-17.5); LYMPHOCYTES # (AUTO) 1.8 K/uL (0.8-4.8); LYMPHOCYTES % (AUTO) 15.7 % (20.0-44.0); MEAN CORPUSCULAR HEMOGLOBIN 29 PG (26.0-33.0); MEAN CORPUSCULAR HGB CONC 31 g/dl (31.0-36.0); MEAN CORPUSCULAR VOLUME 94 fL (80-96); MONOCYTES # (AUTO) 4.9 K/uL (0.1-1.30); MONOCYTES % (AUTO) 41.8 % (2.0-12.0); NEUTROPHILS # (AUTO) 4.9 K/uL (1.8-8.9); NEUTROPHILS % (AUTO) 41.5 % (43.0-81.0); PLATELET COUNT (AUTO) 233 K/uL (150-450); RED BLOOD CELL COUNT(AUTO) 3.05 MIL/uL (4.5-6.0); RED CELL DISTRIBUTION WIDTH 23.3 % (11.5-15.0); WHITE BLOOD COUNT (AUTO) 11.7 K/uL (4.3-11.0)
[2023-09-22 05:27] LABS: ALKALINE PHOSPHATASE 1098 U/L (46-116)
[2023-09-22] MEDS: ALBUMIN 25% 25 GM in PREMIX 1 EA IV SCH (06:29)
[2023-09-22 06:41] LABS: LYMPHOCYTES % (MANUAL) 9 % (16-48); MONOCYTES % (MANUAL) 2 % (0-11.0); NEUTROPHILS % (MANUAL) 89 (42-76)
[2023-09-22 06:42] LABS: ANISOCYTOSIS 1+; BASOPHILS % (MANUAL) 0 % (0.0-2.0); EOSINOPHILS % (MANUAL) 0 % (0-4); PLATELET ESTIMATE ADEQUATE
[2023-09-22] MEDS: ALBUMIN 25% 50 ML IV ONE (06:42)
[2023-09-22] MEDS: FINASTERIDE (5 MG) 5 MG TABLET PO SCH (08:10)
[2023-09-22] MEDS: TAMSULOSIN 0.4 MG CAP.SR.24H PO SCH (08:10)
[2023-09-22] MEDS: PANTOPRAZOLE 40 MG TABLET.DR PO SCH (08:11)
[2023-09-22 09:07] LABS: IRON, SERUM 31 ug/dl (50-175); TOTAL IRON BINDING CAPACITY 150 ug/dl (250-450)
[2023-09-22] MEDS: SOD FERRIC GLUC 125 MG in IV NS 0.9% 100 ML IV SCH (13:47)
[2023-09-22] MEDS: CEFEPIME 1 GM in IV D5W 50 ML IV SCH (15:43)
[2023-09-22] MEDS ORDERED: NEPRO VAN 237 ML CAN PO PRN ×2 (18:30)
[2023-09-23] VITALS: BP 115/53; TEMP 97.5; O2SAT 97
[2023-09-23 06:53] LABS: APPEARANCE,URINE CLOUDY (CLEAR); BILIRUBIN,URINE 3+ (NEGATIVE); BLOOD, URINE 2+ Ery/uL (NEGATIVE); COLOR,URINE DARK YELLOW (YELLOW); KETONES,URINE NEGATIVE (NEGATIVE); LEUKOCYTE ESTERASE ,URINE 2+ (NEGATIVE); NITRITE, URINE NEGATIVE (NEGATIVE); PH,URINE 5.5 (5.0-8.0); PROTEIN,URINE NEGATIVE (NEGATIVE); UGLUCOSE TRACE mg/dL (NEGATIVE); UROBILINOGEN,URINE 0.2 EU/dL (0.2)
[2023-09-23 07:41] LABS: CREATININE, URINE 34.1 MG/DL (30.0-125.0); URINE TOTAL PROTEIN 31.5 mg/dL (0-11.9)
[2023-09-23 07:51] LABS: BASOPHILS # (AUTO) 0.1 K/uL (0.0-0.2); BASOPHILS % (AUTO) 0.5 % (0.0-2.0); EOSINOPHILS % (AUTO) 0.1 % (0.0-6.0); HEMATOCRIT 23 % (39-51); HEMOGLOBIN 7.7 g/dL (13.5-17.5); LYMPHOCYTES # (AUTO) 2.6 K/uL (0.8-4.8); LYMPHOCYTES % (AUTO) 23.4 % (20.0-44.0); MEAN CORPUSCULAR HEMOGLOBIN 29 PG (26.0-33.0); MEAN CORPUSCULAR HGB CONC 33 g/dl (31.0-36.0); MEAN CORPUSCULAR VOLUME 88 fL (80-96); MONOCYTES # (AUTO) 2.3 K/uL (0.1-1.30); MONOCYTES % (AUTO) 21.3 % (2.0-12.0); NEUTROPHILS % (AUTO) 54.7 % (43.0-81.0); PLATELET COUNT (AUTO) 213 K/uL (150-450); RED BLOOD CELL COUNT(AUTO) 2.66 MIL/uL (4.5-6.0); RED CELL DISTRIBUTION WIDTH 21.9 % (11.5-15.0)
[2023-09-23 08:08] LABS: ADD URINE CULTURE YES; BACTERIA,URINE Few /HPF (None Seen); EOSINOPHIL,URINE None Seen; SQUAMOUS EPITHELIAL CELL,UR Moderate /HPF (None Seen)
[2023-09-23 08:13] LABS: CALCIUM, SERUM 7.2 mg/dL (8.5-10.1); CARBON DIOXIDE 15 mmol/L (21-32); CHLORIDE 112 mmol/L (98-107); CREATININE 0.9 mg/dL (0.6-1.3); GLUCOSE 92 mg/dL (74-106); SODIUM SERUM 146 mmol/L (136-145); UREA NITROGEN, BLOOD 35 mg/dL (7-18)
[2023-09-23 08:48] LABS: POTASSIUM 2.4 mmol/L (3.5-5.1)
[2023-09-23 09:15] LABS: FERRITIN 3149 ng/mL (8-388)
[2023-09-23] MEDS: POTASSIUM CHLORIDE 20 MEQ TAB.PRT.SR PO ONE (09:38)
[2023-09-23] MEDS: POTASSIUM CL. PREMIX PERIPHER. 50 ML IV SCH (09:39)
[2023-09-23 11:18] LABS: IRON, SERUM 32 ug/dl (50-175); TOTAL IRON BINDING CAPACITY 103 ug/dl (250-450)
[2023-09-23 12:00] VITALS: BP 115/49; TEMP 98.4; O2SAT 100
[2023-09-23 12:04] LABS: ANISOCYTOSIS 1+; BASOPHILS % (MANUAL) 0 % (0.0-2.0); EOSINOPHILS % (MANUAL) 0 % (0-4); LYMPHOCYTES % (MANUAL) 11 % (16-48); MONOCYTES % (MANUAL) 4 % (0-11.0); NEUTROPHILS % (MANUAL) 88 (42-76); PLATELET ESTIMATE DECREASED; STOMATOCYTES 1+
[2023-09-23] MEDS: MORPHINE SULFATE INJ 2 MG/ML DISP.SYRIN IV PRN (12:17)
[2023-09-23 15:33] LABS: CALCIUM, SERUM 7.6 mg/dL (8.5-10.1); CARBON DIOXIDE 16 mmol/L (21-32); CHLORIDE 113 mmol/L (98-107); CREATININE 0.8 mg/dL (0.6-1.3); GLUCOSE 103 mg/dL (74-106); POTASSIUM 2.9 mmol/L (3.5-5.1); SODIUM SERUM 144 mmol/L (136-145); UREA NITROGEN, BLOOD 33 mg/dL (7-18)
[2023-09-23] MEDS: VANCOMYCIN HCL 1.25 GM in IV D5W 250 ML IV ONE (18:41)
[2023-09-23 20:00] VITALS: BP 89/53; TEMP 97.8; O2SAT 100
[2023-09-23] MEDS: CEFEPIME 1 GM in IV D5W 50 ML IV SCH (20:37)
[2023-09-23] MEDS: ALBUTEROL FS 2.5 MG/0.5 ML VIAL.NEB NEB SCH (22:27)
[2023-09-23] MEDS: IPRATROPIUM NEB FS 0.5 MG/2.5 ML AMPUL.NEB NEB SCH (22:27)
[2023-09-23 22:28] VITALS: O2SAT 100
[2023-09-23 22:30] VITALS: O2SAT 100
[2023-09-23 22:42] VITALS: O2SAT 100
[2023-09-24] VITALS (11 sets, daily range): BP systolic 93–100; BP diastolic 41–52; TEMP 98.1–98.8; O2SAT 98–100
[2023-09-24] MEDS: VANCOMYCIN 750 MG in IV D5W 250 ML IV SCH (05:53)
[2023-09-24] MEDS: IV NS 0.9% 1,000 ML IV PRN (06:23)
[2023-09-24 07:35] LABS: BASOPHILS % (AUTO) 0.1 % (0.0-2.0); EOSINOPHILS % (AUTO) 0.1 % (0.0-6.0); HEMATOCRIT 25 % (39-51); HEMOGLOBIN 8.2 g/dL (13.5-17.5); LYMPHOCYTES # (AUTO) 0.9 K/uL (0.8-4.8); LYMPHOCYTES % (AUTO) 7.6 % (20.0-44.0); MEAN CORPUSCULAR HEMOGLOBIN 29 PG (26.0-33.0); MEAN CORPUSCULAR HGB CONC 33 g/dl (31.0-36.0); MEAN CORPUSCULAR VOLUME 89 fL (80-96); MONOCYTES # (AUTO) 1.7 K/uL (0.1-1.30); MONOCYTES % (AUTO) 14.5 % (2.0-12.0); NEUTROPHILS # (AUTO) 8.8 K/uL (1.8-8.9); NEUTROPHILS % (AUTO) 77.7 % (43.0-81.0); PLATELET COUNT (AUTO) 157 K/uL (150-450); RED BLOOD CELL COUNT(AUTO) 2.84 MIL/uL (4.5-6.0); RED CELL DISTRIBUTION WIDTH 22.6 % (11.5-15.0); WHITE BLOOD COUNT (AUTO) 11.4 K/uL (4.3-11.0)
[2023-09-24 07:55] LABS: CALCIUM, SERUM 7.3 mg/dL (8.5-10.1); CARBON DIOXIDE 19 mmol/L (21-32); CHLORIDE 115 mmol/L (98-107); CREATININE 0.8 mg/dL (0.6-1.3); GLUCOSE 122 mg/dL (74-106); POTASSIUM 3.1 mmol/L (3.5-5.1); SODIUM SERUM 146 mmol/L (136-145); UREA NITROGEN, BLOOD 28 mg/dL (7-18)
[2023-09-24 08:15] LABS: IRON, SERUM 39 ug/dl (50-175); TOTAL IRON BINDING CAPACITY 107 ug/dl (250-450)
[2023-09-24 08:33] LABS: FERRITIN 3165 ng/mL (8-388)
[2023-09-24] MEDS: POTASSIUM CHLORIDE 20 MEQ TAB.PRT.SR PO ONE (09:10)
[2023-09-25] VITALS (10 sets, daily range): BP systolic 105–110; BP diastolic 47–51; TEMP 97.9–98.1; O2SAT 95–100
[2023-09-25 07:32] LABS: BASOPHILS % (AUTO) 0.1 % (0.0-2.0); EOSINOPHILS # (AUTO) 0.1 K/uL (0.0-0.7); EOSINOPHILS % (AUTO) 0.6 % (0.0-6.0); HEMATOCRIT 24 % (39-51); HEMOGLOBIN 7.9 g/dL (13.5-17.5); LYMPHOCYTES % (AUTO) 27.2 % (20.0-44.0); MEAN CORPUSCULAR HEMOGLOBIN 29 PG (26.0-33.0); MEAN CORPUSCULAR HGB CONC 32 g/dl (31.0-36.0); MEAN CORPUSCULAR VOLUME 89 fL (80-96); MONOCYTES # (AUTO) 1.1 K/uL (0.1-1.30); MONOCYTES % (AUTO) 9.7 % (2.0-12.0); NEUTROPHILS % (AUTO) 62.4 % (43.0-81.0); PLATELET COUNT (AUTO) 96 K/uL (150-450); RED BLOOD CELL COUNT(AUTO) 2.75 MIL/uL (4.5-6.0); WHITE BLOOD COUNT (AUTO) 11.2 K/uL (4.3-11.0)
[2023-09-25 07:41] LABS: CALCIUM, SERUM 7.4 mg/dL (8.5-10.1); CARBON DIOXIDE 19 mmol/L (21-32); CHLORIDE 113 mmol/L (98-107); CREATININE 0.6 mg/dL (0.6-1.3); GLUCOSE 114 mg/dL (74-106); POTASSIUM 4.3 mmol/L (3.5-5.1); SODIUM SERUM 141 mmol/L (136-145); UREA NITROGEN, BLOOD 25 mg/dL (7-18)
[2023-09-25 07:44] LABS: ALBUMIN 1.5 g/dL (3.4-5.0); BILIRUBIN,DIRECT 18.5 mg/dL (0.0-0.2); BILIRUBIN,TOTAL 21.3 mg/dL (0.2-1.0); TOTAL PROTEIN, SERUM 4.8 g/dL (6.4-8.2)
[2023-09-25 08:43] LABS: ANISOCYTOSIS 1+; EOSINOPHILS % (MANUAL) 1 % (0-4); HYPOCHROMASIA 1+; LYMPHOCYTES % (MANUAL) 9 % (16-48); MONOCYTES % (MANUAL) 5 % (0-11.0); MYELOCYTES % 2 % (0-0); NEUTROPHILS % (MANUAL) 83 (42-76)
[2023-09-25 08:44] LABS: PLATELET ESTIMATE DECRE; TARGET CELLS 1+
[2023-09-26] VITALS: BP 98/51; TEMP 98.3; O2SAT 99
[2023-09-26 02:15] VITALS: O2SAT 99
[2023-09-26 02:31] VITALS: O2SAT 100
[2023-09-26 07:46] VITALS: O2SAT 99
[2023-09-26 07:50] LABS: BASOPHILS % (AUTO) 0.2 % (0.0-2.0); EOSINOPHILS # (AUTO) 0.1 K/uL (0.0-0.7); EOSINOPHILS % (AUTO) 0.9 % (0.0-6.0); HEMATOCRIT 23 % (39-51); HEMOGLOBIN 7.5 g/dL (13.5-17.5); LYMPHOCYTES # (AUTO) 3.1 K/uL (0.8-4.8); LYMPHOCYTES % (AUTO) 28.4 % (20.0-44.0); MEAN CORPUSCULAR HEMOGLOBIN 30 PG (26.0-33.0); MEAN CORPUSCULAR HGB CONC 33 g/dl (31.0-36.0); MEAN CORPUSCULAR VOLUME 92 fL (80-96); MONOCYTES # (AUTO) 1.2 K/uL (0.1-1.30); NEUTROPHILS # (AUTO) 6.5 K/uL (1.8-8.9); NEUTROPHILS % (AUTO) 59.5 % (43.0-81.0); PLATELET COUNT (AUTO) 80 K/uL (150-450); RED BLOOD CELL COUNT(AUTO) 2.48 MIL/uL (4.5-6.0); RED CELL DISTRIBUTION WIDTH 22.8 % (11.5-15.0)
[2023-09-26 08:00] VITALS: BP 101/76; TEMP 98.4; O2SAT 100
[2023-09-26 08:03] LABS: CALCIUM, SERUM 7.6 mg/dL (8.5-10.1); CARBON DIOXIDE 16 mmol/L (21-32); CHLORIDE 111 mmol/L (98-107); CREATININE 0.9 mg/dL (0.6-1.3); GLUCOSE 113 mg/dL (74-106); POTASSIUM 3.7 mmol/L (3.5-5.1); SODIUM SERUM 139 mmol/L (136-145); UREA NITROGEN, BLOOD 26 mg/dL (7-18)
[2023-09-26] MEDS ORDERED: VANC750F IV (08:17)
[2023-09-26] MEDS: PANTOPRAZOLE 40 MG VIAL IV SCH (08:39)
[2023-09-26 11:04] LABS: ANISOCYTOSIS 1+; EOSINOPHILS % (MANUAL) 0 % (0-4); LYMPHOCYTES % (MANUAL) 8 % (16-48); MONOCYTES % (MANUAL) 1 % (0-11.0); NEUTROPHILS % (MANUAL) 91 (42-76); PLATELET ESTIMATE DECREASED
== END 2023-09-26 11:35 | DRG 871 ==
LOC: ER 13:33 → ICU 16:31 → TELE1 09-22 10:40 → MEDSG1 09-23 10:31
PROVIDERS: ADMIT Internal Medicine; ATTEND Internal Medicine
PROC: 30233N1 Transfusion of Nonautologous Red Blood Cells into Peripheral Vein, Percutaneous Approach (ICD-10-PCS; principal; 2023-09-21)
DX: A41.89 Other specified sepsis (principal); E43 Unspecified severe protein-calorie malnutrition; K72.00 Acute and subacute hepatic failure without coma; N17.0 Acute kidney failure with tubular necrosis; K83.1 Obstruction of bile duct; C18.9 Malignant neoplasm of colon, unspecified; C78.7 Secondary malignant neoplasm of liver and intrahepatic bile duct; C79.72 Secondary malignant neoplasm of left adrenal gland; N39.0 Urinary tract infection, site not specified; D68.9 Coagulation defect, unspecified; E87.1 Hypo-osmolality and hyponatremia; E87.20 Acidosis, unspecified; R65.20 Severe sepsis without septic shock; M81.0 Age-related osteoporosis without current pathological fracture; N40.0 Benign prostatic hyperplasia without lower urinary tract symptoms; Z90.49 Acquired absence of other specified parts of digestive tract; Z98.890 Other specified postprocedural states; Z79.83 Long term (current) use of bisphosphonates; Z79.899 Other long term (current) drug therapy; Z51.5 Encounter for palliative care; Z66 Do not resuscitate; L89.156 Pressure-induced deep tissue damage of sacral region; D50.9 Iron deficiency anemia, unspecified; E78.5 Hyperlipidemia, unspecified; E83.39 Other disorders of phosphorus metabolism; E83.42 Hypomagnesemia; E87.6 Hypokalemia; E88.09 Other disorders of plasma-protein metabolism, not elsewhere classified; F17.210 Nicotine dependence, cigarettes, uncomplicated; N18.9 Chronic kidney disease, unspecified; I12.9 Hypertensive chronic kidney disease with stage 1 through stage 4 chronic kidney disease, or unspecified chronic kidney disease; K59.00 Constipation, unspecified; K21.9 Gastro-esophageal reflux disease without esophagitis; L98.9 Disorder of the skin and subcutaneous tissue, unspecified; Z85.828 Personal history of other malignant neoplasm of skin; D63.8 Anemia in other chronic diseases classified elsewhere; E80.6 Other disorders of bilirubin metabolism; R74.01 Elevation of levels of liver transaminase levels; M85.80 Other specified disorders of bone density and structure, unspecified site; B95.2 Enterococcus as the cause of diseases classified elsewhere; E86.0 Dehydration
CPT/HCPCS: 36415; 71045-TC; 76770-TC; 80048-TC; 80076-TC; 80202-TC; 81001; 82570-TC; 82728-TC; 83540-TC; 83605-TC; 83735-TC; 84100-TC; 84300-TC; 84484-TC; 85025-TC; 85730-TC; 86850-TC; 87040-TC; 87186-TC; 94760-TC; 94762-TC; 94799-TC; A4216; A4223; G0378; J0692; J2270; J2470; J2916; J3370; J3371; J3480; J7030; J7050; J7060; P9016; P9047